=== PATIENT | male | born 1945 | race Native Hawaiian/Other Pacific Islander ===

== ENCOUNTER 2016-12-28 10:44 | Inpatient (IN) | payer OTHER ==
[2016-12-28] VITALS (10 sets, daily range): BP systolic 135–159; BP diastolic 45–76; PULSE 60–81; RESP 13–23; O2SAT 88–100
[~2016-12-28] VITALS: Ht 172.7 cm; Wt 101.1 kg
[~2016-12-28 10:44] MED LIST: AMLO10TA3 PO; ASPI-973 PO; CALC0.257 PO; DEXT4TAB PO; FERR-83 PO; FUR20 PO; GLIP10TA10 PO; INSU100V7 SUBQ; LOSA100T29 PO; METO100T3 PO; SIMV20TA4 PO; TIMO5DRO5 BOTH_EYES; ZYL100 PO
--- NOTE | 2016-12-28 11:28 | ED.REPORT ---
HPI-Dyspnea / Wheezing Date of Service Dec 28, 2016 ED Provider: Parrish Sanchez DO 71 year old male with a history of pneumonia, diabetes and HTN presents to the ER accompanied by his daughter due to three months of shortness of breath, worsening markedly over the past two days. Associated symptoms include productive cough, chills, and lower extremity swelling. Respiratory symptoms are worsened by laying flat. Daughter also reports confusion, stating that he has been "incoherent" for the past few days, but more talkative and coherent today. Patient denies fever, recent exposure to ill contacts, and history of CHF diagnosis. Nursing Notes Stated Complaint: SHORTNESS OF BREATH Chief Complaint: Respiratory Complaints Nursing Notes Reviewed: Yes Allergies: Coded Allergies: No Known Allergies (Unverified , 12/28/16) Scheduled Allopurinol (Allopurinol) 100 Mg Tablet 100 MG PO DAILY Amlodipine (Amlodipine) 10 Mg Tablet 10 MG PO DAILY Aspirin (Aspirin) 81 Mg Tablet 81 MG PO DAILY Calcitriol (Rocaltrol) 0.25 Mcg Capsule 0.25 MCG PO Mon, Wed, Sun Dextrose (Glucose) 4 Gm Tab.chew 4 GM PO DIRECTED Ferrous Sulfate (Ferrous Sulfate) 325 Mg Tablet 325 MG PO DAILY Furosemide (Furosemide) 20 Mg Tab 20 MG PO DAILY Glipizide (Glipizide) 10 Mg Tablet 20 MG PO BID Insulin Glargine (Lantus U100 Insulin Vial) 100 Unit/Ml Vial 10 UNIT SUBQ HS Losartan Potassium (Losartan Potassium) 100 Mg Tablet 50 MG PO DAILY Metoprolol Tartrate (Metoprolol Tartrate) 100 Mg Tablet 150 MG PO BID Miconazole Nitrate (Miconazole Nitrate) 10 Gm Powder 1 APPLIC TOPICAL DAILY Apply to toes Multivitamin (Multivitamins) 1 Each Capsule 1 EACH PO DAILY Ranitidine (Ranitidine) 300 Mg Tablet 300 MG PO HS Simvastatin (Simvastatin) 20 Mg Tablet 20 MG PO HS Timolol Maleate (Timolol Maleate) 5 Ml Drops 1 DROP BOTH_EYES BID General Time Seen by MD: 11:28 Chief Complaint Shortness of breath Hx Obtained From: Patient, Daughter Arrived By: Walk-in Sudden in Onset?: No Onset Occurred: More than a week ago... (3 months) Symptom Duration: Since onset Associated with: Reports: Cough, Leg swelling Context Related History: Reports: Pneumonia, Denies: Congestive heart failure Past Medical History Past Medical History Gout Reports: Diabetes mellitus, Hyperlipidemia, Hypertension Reports: Obesity Smoking History Former Smoker Social History Alcohol Use: Denies alcohol use Ambulatory Status Independent Review of Systems Constitutional: Reports: Chills, Denies: Fever Respiratory: Reports: Prod cough, clear, Shortness of breath Musculoskeletal: Reports: Extremity swelling (Lower, bilateral) Complete sys rev & neg: except as marked. GI: Denies: Abdominal pain, Nausea, Vomiting Neurologic: Reports: Confusion, Denies: Headache Physical Exam Initial Vital Signs Vital Signs (First) Date Time Temp Pulse Resp B/P Pulse Ox O2 Delivery O2 Flow Rate FiO2 12/28/16 10:52 36.3 70 18 143/66 88 Room Air 12/28/16 14:32 25 Initial VS: Reviewed Head / Eyes: Atraumatic, Normocephalic Abdomen / GI: Soft, Non-tender, No guarding, No rebound, No distention Extremities: Vascular intact, Neuro intact, No swelling, No tenderness Skin: Warm, Dry, No cyanosis Neurologic: Alert, Oriented, Nonfocal General/Constitutional: Awake, Alert, Well developed, Well nourished Neck: Atraumatic, Supple, No meningismus, Full range of motion, No swelling, Non-tender, No masses Neck Vascular: Positive: JVD moderate Respiratory / Chest: No rhonchi, No wheezing, No retractions, No stridor, No chest tenderness Rales in the lower lung tee, bilaterally. Cardiovascular: Heart rate NL, Regular rhythm, Heart sounds NL, Peripheral circulation NL Bilateral lower extremity edema. Interpretation & Diagnostics Lab Results Interpretation Result Diagram: 12/28/16 1130 12/28/16 1130 Test 12/28/16 11:30 12/28/16 11:40 12/28/16 12:55 12/28/16 13:15 White Blood Count 12.6th/mm3 (3.8-10.1) Red Blood Count 2.85mil/mm3 (4.40-5.80) Hemoglobin 7.9g/dL (13.8-17.2) Hematocrit 26.0% (41.0-50.0) Mean Corpuscular Volume 91.2fL (81-100) Mean Corpuscular Hemoglobin 27.7pg (27.0-35.0) Mean Corpuscular Hemoglobin Concent 30.4% (32.0-37.0) Red Cell Distribution Width 16.1% (12.3-15.4) Platelet Count 336bil/L (150-400) Neutrophils (%) (Auto) 83.3% (40-74) Lymphocytes (%) (Auto) 8.6% (14-46) Monocytes (%) (Auto) 5.8% (4-12) Eosinophils (%) (Auto) 1.9% (0-5) Basophils (%) (Auto) 0.2% (0-3) Sodium Level 138mEq/L (134-144) Potassium Level 5.8mEq/L (3.5-5.2) Chloride Level 103mEq/L (97-108) Carbon Dioxide Level 16mmol/L (18-29) Blood Urea Nitrogen 74mg/dL (8-27) Creatinine 3.91mg/dL (0.76-1.27) Estimat Glomerular Filtration Rate 16mL/min (>59) Glucose Level 107mg/dL (60-99) Calcium Level 8.3mg/dL (8.5-10.1) Total Bilirubin 0.3mg/dL (0.0-1.2) Aspartate Amino Transf (AST/SGOT) 31U/L (0-50) Alanine Aminotransferase (ALT/SGPT) 22U/L (0-44) Alkaline Phosphatase 102U/L (25-160) Troponin T 0.052ug/L (0.0-0.011) Pro-B-Type Natriuretic Peptide 09788qi/mL (0-376) Total Protein 7.5g/dL (6.4-8.4) Albumin 3.2g/dL (3.4-5.0) Procalcitonin 1.45ng/mL (0.00-0.08) Urine Color Yellow (YELLOW) Urine Appearance Hazy (CLEAR,HAZY) Urine pH 5.0 (5.0-8.0) Urine Specific [place] 1.030 (1.003-1.035) Urine Protein 100mg/dL (NEG,TRACE) Urine Glucose (UA) Negativemg/dL (NEGATIVE) Urine Ketones Negativemg/dL (NEGATIVE) Urine Occult Blood Small (NEGATIVE) Urine Nitrite Negative (NEGATIVE) Urine Bilirubin Negative (NEGATIVE) Urine Urobilinogen Normalmg/dL (NORMAL) Urine Leukocyte Esterase Moderate (NEGATIVE) Urine RBC 0-2/hpf (0-2) Urine WBC 11-50/hpf (0-5) Urine Epithelial Cells Occasional/hpf (NONE-MOD) Urine Crystals None seen (NONE SEEN) Urine Bacteria Few/hpf (NONE-FEW) Urine Hyaline Casts Occasional/lpf (NONE) Urine Granular Casts Occasional (NONE SEEN) Urine Waxy Casts None seen (NONE SEEN) Urine Red Blood Cell Casts None seen (NONE SEEN) Urine White Blood Cell Casts None seen (NONE SEEN) Urine Mucus Present (None Seen) Urine Trichomonas None seen (NONE SEEN) Urine Yeast None (NONE SEEN) Urinalysis Comment None Urine Culture Reflexed Indicated Lactic Acid Level 1.0mmol/L (0.4-2.0) Test 12/28/16 14:35 Lab Results Interpretation: Venous Blood Gas: pH: 7.310 pCO2: 41 pO2: 51.5 cHCO3: 20.1 cBase: -5.1 ECG Interpretation ECG Interpretation: Sinus rhythm, rate 66 RBBB and LAFB Time: 11:09 Interpreted by: ED physician X-Ray Chest Interpretation Chest Xray Interpretation: IMPRESSION: Increased pulmonary vascularity and interstitial opacities within the bases as well is cardiomegaly. Findings are suspicious for overall appearance of edema. Bibasilar opacities could be parts sales representative of focal edema versus developing airspace disease such as pneumonia. Dictated by: Giuliana Dill M.D. on 12/28/2016 at 12:17 Approved by: Giuliana Dill M.D. on 12/28/2016 at 12:18 View: Portable, 1 view Interpretation / Wet Read by: Interpret - Radiologist Re-Eval/Medical Decision Med Decision/Clinical Course Likely combination of infectious upper respiratory infection and acute kidney injury and possibly new onset heart failure. patient clinically looks fluid overloaded given his lower extremity edema JVD and pulmonary congestion on x-ray. There are no particular signs or symptoms of acute coronary syndrome. Patient is given IV Lasix and IV antibiotics and will be admitted. Source of Hx: Old records Re-Evaluation/Progress #1: Time of Eval: 11:55 Re-Evaluation/Progress Note: Completed physical examination. Re-Evaluation/Progress #2: Time of Eval: 14:16 Re-Evaluation/Progress Note: Nephrology requesting to place patient on bipap. Rechecked patient with manager store. Consultation #1: Referral / Consult Name: Luis Garcia DO Consulted With: Nephrology Call Returned at: 12:42 Marine Steamfitter: Will see patient Consultation #2: Referral / Consult Name: Donta Mitchell MD Consulted With: Hospitalist Call Returned at: 13:24 Marine Steamfitter: Agrees with eval, Agrees with plan, Accepts admit Counseled Regarding: Diagnosis, Lab results, Need for admission Discharge & Departure Impression: Primary Impression: Pneumonia Additional Impression: Acute kidney injury Disposition: ADMITTED TO HOSPITAL Discharge Condition All VS Reviewed: Yes Condition: Stable Scribe Attestation Portions of this note were transcribed by Sammy Shi. I, Dr. Sanchez, personally performed the history, physical exam and medical decision-making; I reviewed and confirmed the accuracy of the information in the transcribed note. Signed by: Pastora Pollock, 12/28/2016 and 14:17 Parrish Sanchez DO Dec 28, 2016 11:28 SAMMY SHI Dec 28, 2016 11:37
[2016-12-28 11:43] LABS: BASOPHILS % (AUTO) 0.2 % (0-3); EOSINOPHILS % (AUTO) 1.9 % (0-5); MONOCYTES % (AUTO) 5.8 % (4-12); Mean Corpuscular Hemoglobin 27.7 pg (27.0-35.0); Mean Corpuscular Volume 91.2 fL (81-100); NEUTROPHILS % (AUTO) 83.3 % (40-74); Platelet Count 336 bil/L (150-400)
--- NOTE | 2016-12-28 12:19 | DRSVH ---
PROCEDURE: X-RAY CHEST ONE VIEW, PORTABLE ([id number]) INDICATIONS: cough TECHNIQUE: One view of the chest was acquired. COMPARISON: [facility], CR, XR CHEST 2VW, 07/20/2016, 9:37. FINDINGS: Surgical changes and devices: None. Lungs and pleura: There is an abnormal appearance of increased pulmonary vascularity. Increased opaci ties are present within the bases. Mediastinum: Mediastinal contours appear normal. Heart size is enlarged. Bones and chest wall: No suspicious bony lesions. Overlying soft tissues appear unremarkable. IMPRESSION: Increased pulmonary vascularity and interstitial opacities within the bases as well is ca rdiomegaly. Findings are suspicious for overall appearance of edema. Bibasilar opacities could be rep resentative of focal edema versus developing airspace disease such as pneumonia. Dictated by: Giuliana Dill M.D. on 12/28/2016 at 12:17 Approved by: Giuliana Dill M.D. on 12/28/2016 at 12:18
[2016-12-28 12:21] LABS: TROPONIN T 0.052 ug/L (0.0-0.011)
[2016-12-28] MEDS ORDERED: Furosemide 10 mg/mL 10 mL Inj IVPUSH ONE ×2 (12:45→18:20)
[2016-12-28] MEDS ORDERED: cefTRIAXone Inj 2,000 MG in Dextrose 5% Minibag Plus 50 ML IV ONE (12:45)
[2016-12-28] MEDS ORDERED: Azithromycin Inj 500 MG in Dextrose 5% w/Vial Mate 250 ML IV ONE (12:45)
[2016-12-28 13:06] LABS: APPEARANCE,URINE HAZY (CLEAR,HAZY); COLOR,URINE YELLOW (YELLOW); OCCULT BLOOD,URINE SMALL (NEGATIVE); UROBILINOGEN,URINE NORMAL (NORMAL)
[2016-12-28] MEDS ORDERED: RANI300T4 PO (13:19)
[2016-12-28] MEDS ORDERED: MULT1CAP33 PO (13:19)
[2016-12-28] MEDS ORDERED: MICO10PO TOPICAL (13:20)
--- NOTE | 2016-12-28 13:33 | ABG ---
DateTimeAnalyzed 13:30:00 -_ pH ____7.310 - pCO2 ___41.2__ -mmHg pO2 ___51.5__ -mmHg HCO3- ___20.1__ -mmol/L ABE ___-5.1__ -mmol/L tHb ____7.8__ -g/dL O2Hb ___83.7__ -% COHb ____2.3__ -% MetHb ____1.0__ -% sO2 ___86.6__ -% FIO2 ___21.0__ -% Drawn By LAB - Date/Time Notified____ 13:33:00 -_ Oxygen Device 1 _ROOM AIR - Notified By JJ - Notified Whom DR OKELLEY - B 764 -mmHg tO2 ____9.2__ -Vol% Sebastian test N/A -
[2016-12-28] MEDS ORDERED: Alum-Mag Hydrox-Simeth 30 mL Suspension PO PRN (13:35)
[2016-12-28] MEDS ORDERED: Ondansetron 2 mg/mL 2 mL Inj IVPUSH PRN (13:35)
[2016-12-28] MEDS ORDERED: Polyethylene Glycol (PEG) 17 Gm Powder PO PRN (13:40)
--- NOTE | 2016-12-28 16:50 | NUR ---
1635 Pt arrived to room 2006. Pt. on RA upon arrival. Pt. RA sats 98%/ RR 18/ HR 69. Pt. placed on 1 lpm for comfort. Sats 98%. Pt. placed on 1/2 lpm NC. Sats 98%. Loose congested cough. BS decreased. Pt. refusing Bipap and Home CPAP. States "uncomfortable". Bipap is set up and cpap On S/B in room. Will set up CPAP for pt. to wear if wanted. Pt. refusing home cpap as well.
--- NOTE | 2016-12-28 17:04 | NUR ---
Admit Pt arrived to the unit at 1635 A&O x3 and on RA. The pt is currently refusing bipap and cpap - MD aware.
[2016-12-28] MEDS: cefTRIAXone Inj 1,000 MG in Dextrose 5% Minibag Plus 50 ML IV SCH (17:16)
--- NOTE | 2016-12-28 17:18 | PCM.HPMED ---
Subjective Date of Service Dec 28, 2016 Primary Provider: Admitting Physician: Tra Hill MD [facility] Attending Physician: Tra Hill MD Chief Complaint: Shortness of breath History of Present Illness: 71-year-old male with a history of diabetes, stage IV chronic kidney disease, and hypertension with admission for possible CHF exacerbation in July 2016 who presents to the ED today due to 2 months of progressive shortness of breath , orthopnea, PND, increased lower extremity edema, lower exercise tolerance, increasing cough, increasing sputum production. Patient also endorses chills without fever. Patient states that this started 2 months ago and is progressing to include shortness of breath with walking up stairs and around his house. He is unable to lay flat. Family reports confusion over the last couple of days and brought the patient to the hospital. Patient admits he has not been compliant with his home medications. He also did not follow up with nephrology after his last visit. In the ED the patient was placed on BiPAP due to shortness of breath. He is also started on azithromycin and ceftriaxone as well as doxycycline for presumed coverage of community acquired pneumonia. Venous blood gas was obtained in the ED showed a pH of 7.31, PCO2 41.2, PO2 51.5, bicarbonate of 20.1 , saturation of 86.6. White count 12.6, hemoglobin 7.9, hematocrit 26.0, platelet count of 336, neutrophils 83% Sodium 138, potassium 5.8, chloride 103, bicarbonate 16, BUN 74, creatinine 3.91 , glucose 107, troponin 0.052, BNP 16,962, profiles time 1.45 Lactic acid is 1, ammonia is 70; liver function normal Review of Systems: Complete review of systems performed; creatinine positives and negatives per history of present illness, all other systems reviewed and are negative Allergies Coded Allergies: No Known Allergies (Unverified , 12/28/16) Home Medications Allopurinol (Allopurinol) 100 Mg Tablet 100 MG PO DAILY Amlodipine (Amlodipine) 10 Mg Tablet 10 MG PO DAILY Aspirin (Aspirin) 81 Mg Tablet 81 MG PO DAILY Calcitriol (Rocaltrol) 0.25 Mcg Capsule 0.25 MCG PO Mon, Wed, Fri Dextrose (Glucose) 4 Gm Tab.chew 4 GM PO DIRECTED Ferrous Sulfate (Ferrous Sulfate) 325 Mg Tablet 325 MG PO DAILY Furosemide (Furosemide) 20 Mg Tab 20 MG PO DAILY Glipizide (Glipizide) 10 Mg Tablet 20 MG PO BID Insulin Glargine (Lantus U100 Insulin Vial) 100 Unit/Ml Vial 10 UNIT SUBQ HS Losartan Potassium (Losartan Potassium) 100 Mg Tablet 50 MG PO DAILY Metoprolol Tartrate (Metoprolol Tartrate) 100 Mg Tablet 150 MG PO BID Miconazole Nitrate (Miconazole Nitrate) 10 Gm Powder 1 APPLIC TOPICAL DAILY Apply to toes Multivitamin (Multivitamins) 1 Each Capsule 1 EACH PO DAILY Ranitidine (Ranitidine) 300 Mg Tablet 300 MG PO HS Simvastatin (Simvastatin) 20 Mg Tablet 20 MG PO HS Timolol Maleate (Timolol Maleate) 5 Ml Drops 1 DROP BOTH_EYES BID PMH Type II diabetes Hypertension Hyperlipidemia Obesity Chronic kidney disease, stage IV Surgical History No reported surgeries Family History Mother in her early 70s of heart disease/CHF Father in his 80s of "old age" Social History Occupation: retired Hx Alcohol Use: No Hx Substance Use: No Smoking Status: Former Smoker (30 pack years; quit 30 years ago) Living Arrangement: with Family (lives with his brother) Exam Vital Signs Vital Sign - Last Date Time Temp Pulse Resp B/P Pulse Ox O2 Delivery O2 Flow Rate FiO2 12/28/16 16:10 37.1 66 17 135/53 98 BiPAP 12/28/16 14:32 25 Exam Gen: No acute distress, age-appropriate HEENT: EOMI, PERRLA, JVD noted, membranes moist, visual tee decreased, hearing intact Lymph: No lymphadenopathy Cardio: Regular rate and rhythm, no murmurs Respiratory: Diffuse bilateral crackles and coarse breath sounds Abdomen: No edema noted; positive bowel sounds, nontender, nondistended Extremities: Asterixis noted, edema to mid thigh, cyanosis Neurological: Patient is conversing well and is intermittently confused Psych: Appropriate affect Lab and Diagnostics Result Diagram: 12/28/16 1130 12/28/16 1130 X-Rays, CTs and MRIs Chest X-ray IMPRESSION: Increased pulmonary vascularity and interstitial opacities within the bases as well is cardiomegaly. Findings are suspicious for overall appearance of edema. Bibasilar opacities could be medical detail representative of focal edema versus developing airspace disease such as pneumonia. Dictated by: Giuliana Dill M.D. on 12/28/2016 at 12:17 12-lead ECG Normal sinus rhythm with a rate of 66 and notable right bundle branch block with nonspecific inversion of T-wave likely related to the bundle-branch Assessment & Plan 71-year-old male presents second time in 6 months due to increasing shortness of breath with cough and sputum production without fever or chills. Acute on chronic kidney disease; present admission; ongoing -Patient has a history of chronic kidney disease, stage IV, with a baseline creatinine 2; presents with creatinine 3.91 -Patient is also severely fluid overloaded likely secondary to worsening kidney function -Nephrology consult obtained; appreciate their input -Patient also has elevated pro-calcitonin and troponin likely related to kidney failure -Patient was given Lasix in the ED, Lasix will continue overnight within another pressures of 60 mg IV Possible Chronic diastolic heart failure; present on admission; ongoing -Last echo in July revealed a severely dilated left atrium with mild MR and a normal ejection fraction -Chest x-ray is edematous, ammonia is elevated likely due to congestion, and BNP (for what it is worth) is 17,000 -Lasix started as above -Echo tomorrow -EKG reviewed and patient on telemetry -Patient states that he has not been compliant with his diuretics or other medications including metoprolol and losartan; currently not taking his amlodipine Possible community-acquired pneumonia; present admission; ongoing -Patient presents with questionable lower lobe consolidations and leukocytosis; pro-calcitonin is elevated, however this is in kidney disease -Patient started on ceftriaxone and doxycycline in the emergency department and we will continue these through at least tomorrow -Recheck labs in the a.m. including procalcitonin -Blood and urine cultures obtained, will order sputum culture as well Type II diabetes, insulin using; present admission; ongoing -Patient has a history of uncontrolled type II diabetes -Patient states he has not been compliant with his blood sugar is 107 on admission -We will start patient's home Lantus tonight, we will see how he does tomorrow when we add correctional -A1c pending Hyperammonemia with encephalopathy; present admission; ongoing -Patient presents mildly confused but reports at home of the patient being confused -Ammonia level is 70; likely due to chronic hepatic congestion -Will start lactulose Chronic normocytic anemia, likely secondary to CKD; present admission; ongoing -We will continue to monitor and give blood as needed -Current hemoglobin is 7.9 -Discussed with nephrology utility of giving Aranesp Anion gap metabolic acidosis; present on admission; ongoing -Patient presents with anion gap of 19 best explained by uremia -We will follow labs as we diurese Elevated troponin; present admission; ongoing -Likely secondary to chronic kidney disease -No reported chest pain or EKG changes suggestive of ischemia -We will trend overnight Disposition: Patient has been admitted under inpatient status with length of stay greater than 2 midnights due to severity of presenting symptoms, duration treatment, and risk of adverse events Pain Evaluation: Adequate Pain Control GI Prophylaxis: Not indicated VTE Prophylaxis: Sub-Q Heparin (Unfractionated) Resuscitation Status: CPR: Attempt Resuscitation Time spent 40 min Attending Statement Patient seen and examined with house staff, agree with all attached documentation. Adama Ordaz DO Dec 28, 2016 17:18 Sebastian Lange MD Dec 29, 2016 07:48
[2016-12-28] MEDS: Lactulose 20 Gm/30 mL 30 mL Syrup PO SCH (19:37)
--- NOTE | 2016-12-28 19:48 | DRSVH ---
PROCEDURE: US RENAL SONOGRAM INDICATIONS: azael TECHNIQUE: Real-time scanning was performed of the kidneys and bladder, with image documentation. COMPARISON: None. FINDINGS: Kidneys: Kidneys are normal in size. Right kidney measures 13.3 cm long; left kidney measures 13.9 cm long. Right renal cortical thickness is 0.9 cm; left renal cortical thickness is 1.1 cm. Renal c ortical echotexture is difficult to see because good pictures of the right kidney and liver at the sa me depth could not be obtained. Patient is unable to take deep breaths No hydronephrosis or nephrolit hiasis. IMPRESSION: No hydronephrosis. Mild right cortical thinning. Dictated by: Garrick Aguilera M.D. on 12/28/2016 at 19:45 Approved by: Garrick Aguilera M.D. on 12/28/2016 at 19:47
[2016-12-28] MEDS: Heparin 5,000 Unit/mL Inj SUBQ SCH (22:26)
[2016-12-28] MEDS: Nystatin 100,000 Unit/Gm 15 Gm Powder TOPICAL SCH (23:15)
[2016-12-29] VITALS (8 sets, daily range): BP systolic 143–157; BP diastolic 64–75; PULSE 74–92; RESP 20–22; O2SAT 93–97
--- NOTE | 2016-12-29 00:33 | NUR ---
RASH/HYGIENE/MENTATION/COUGH Pt was A&Ox3, but very tired and hard to hold attention. Pt was very weak and needed 2PA for turning and cleaning. Pt had a yeasty smelling rash to the groin folds and scrotal area. Groin area extremely tender and macerated. Nystatin ordered. Pt also had skin tears to lower extremities. Pt denied any pain, but showed signs of pain with facial grimaces when turned or when groin or lower extremities touched. Pt had poor hygiene, with dried feces stuck to groin and buttocks area. Pt was accepting of a bed bath, but needed full assistance with cleaning. Pt had a very aggressive non-productive cough and requested tessalon pearls for relief.
--- NOTE | 2016-12-29 01:51 | CONS ---
[address] [address] CONSULTATION REPORT PATIENT: ESTIVEN HERR : 1945 MR#: [id number] ADMIT: 12/28/2016 JOB ID: [id number] DATE OF SERVICE: RENAL CONSULTATION: HISTORY OF PRESENT ILLNESS: The patient is a very pleasant, but unfortunate, 71-year-old white male who was admitted to [facility] for cough, wheezing, and some shortness of breath. At time of admission, he had a creatinine of 3.9, which is up from a previous creatinine of 2.6 several months ago. Renal consultation is being sought for further evaluation of his acute on chronic kidney injury. The patient states that he has had approximately a two month history of a nonproductive cough. He denies any fever, chills, but does have some nausea without vomiting and diarrhea. He does also relate a history of dyspnea on exertion, orthopnea, and some lower extremity edema. He does not state any complaint of chest pain, difficulty urination or pain with urination. He was hospitalized several months ago and in early July of 2016 his creatinine was 2.7 during a hospitalization and it improved over several days to 2.55. He denies a history of any prior renal problems, but at time of my evaluation he would was rather somnolent and appeared to have difficulty in answering any more than simple questions. He has approximately a five year history of insulin-requiring diabetes mellitus. His diabetes has been complicated by peripheral neuropathy and retinopathy. His blood sugars apparently average in the low 200 range and he does not follow any type of diabetic diet. He does get his medical care at the [facility] There is also a history of obstructive sleep apnea, and although he has been prescribed CPAP he does not use it. There is also a history of hypertension. Although he does not relate a history of chronic kidney disease, he also denies a history of any prior proteinuria, hematuria, prostate problems, hepatitis, recurrent urinary tract infections, renal lithiasis, or frequent use of nonsteroidal anti-inflammatories. He does not take an BABAK inhibitor, but is on losartan. PAST MEDICAL HISTORY: Is significant for: 1. Stage III chronic kidney disease most likely secondary to metabolic syndrome with diabetes and hypertensive etiology. There is also a history as detailed above of insulin-requiring diabetes mellitus with multiple complications. 2. Hypertension with hypertensive heart disease and hypertensive nephrosclerosis. 3. Obstructive sleep apnea. 4. Gout. 5. Hyperlipidemia. Past medical history otherwise is negative for prior stroke, seizure, asthma, tuberculosis, myocardial infarction, congestive heart failure, malignancy. Echocardiogram done in July showed a relatively normal ejection fraction, however, there was evidence of impaired relaxation consistent with diastolic dysfunction. PAST SURGICAL HISTORY: Is unremarkable. ALLERGIES: He is not allergic to any food or any medication. SOCIAL HISTORY: He denies the current use of alcohol, tobacco, or illicit drugs. He lives with his brother and his brother's family, and is quite sedentary, and over the last several months has been progressively weaker with decreased oral intake. FAMILY HISTORY: Unobtainable. REVIEW OF SYSTEMS: As detailed above, otherwise is unknown or unobtainable. PHYSICAL EXAMINATION: Revealed an obese 71-year-old Asiatic gentleman who was quite somnolent at time of my evaluation. Vital signs at time of my evaluation showed a temperature of 36.1, pulse 70, blood pressure is 143/66, however, his pulse ox on room air was 88%. HEENT examination is remarkable for pale sclerae. Neck is supple without adenopathy or thyromegaly. There was moderate to severe jugular venous distention at 60 degrees. Lungs showed a few bibasilar rales, however, in light of his large body habitus the remaining pulmonary exam was clear. Heart was irregularly irregular. Abdomen: Mild to moderately distended with diminished bowel sounds and tympany to percussion. The abdomen was nontense. There was some hepatomegaly noted with evidence of hepatojugular reflux and the liver was pulsatile. Extremities showed some mild generalized lower extremity edema with possible early lymphedema. There was no clubbing or cyanosis noted, however, half and half nails were noted. Skin turgor is good. There is no evidence of any rashes. LABORATORY EXAMINATION: On admission, his white count was 12.6, hemoglobin of 7.9, hematocrit 26.0. Red cell indices, platelet count and differential were remarkable only for 83 neutrophils. His sodium was 138, potassium 5.8, chloride of 103, bicarbonate was 16. BUN and creatinine were 74 and 3.9. Ammonia was 70. Urinalysis showed a specific gravity 1.030, pH is 5. Tests for protein and occult blood were positive. There were 0-2 RBCs per high-power field, 6-50 WBCs per high-power field, and few bacteria were seen. There were a few scattered granular casts noted. I reviewed his current chest x-ray, comparing it to his previous one in July 2016. His chest x-ray shows some cardiomegaly which is old. He does appear to have some increased pulmonary vasculature with multiple air bronchograms more consistent with fluid overload. IMPRESSION: 1. Acute on chronic kidney injury secondary to acute right-sided chronic cor pulmonale. 2. Diabetic nephropathy with chronic kidney disease stage III/IV. 3. Hypertension with hypertensive heart disease and hypertensive nephrosclerosis. 4. Metabolic syndrome. RECOMMENDATION: I would like to cautiously diurese him. My main concern is his somnolence and some myoclonic jerks that have been noticed during my evaluation. We need to closely follow his respiratory parameters, intake and output. Once again, I would like to thank you for allowing me to participate in the care of this pleasant, interesting patient. I will be following him closely with you.
[2016-12-29 03:45] LABS: BASOPHILS % (AUTO) 0.2 % (0-3); EOSINOPHILS % (AUTO) 4.5 % (0-5); MONOCYTES % (AUTO) 7.4 % (4-12); Mean Corpuscular Volume 92.2 fL (81-100); NEUTROPHILS % (AUTO) 74.5 % (40-74); Platelet Count 312 bil/L (150-400)
[2016-12-29 04:24] LABS: TROPONIN T 0.06 ug/L (0.0-0.011)
[2016-12-29 05:43] LABS: Magnesium 2.4 mg/dL (1.6-2.6); Phosphorus 6.3 mg/dL (2.5-4.9); Unsaturated Iron Binding 160.7 ug/dL
[2016-12-29] MEDS: Lactulose 20 Gm/30 mL 30 mL Syrup PO SCH ×3 (07:57→19:16)
[2016-12-29] MEDS: Heparin 5,000 Unit/mL Inj SUBQ SCH ×2 (07:58→19:58)
[2016-12-29] MEDS: Nystatin 100,000 Unit/Gm 15 Gm Powder TOPICAL SCH ×2 (08:00→19:59)
[2016-12-29] MEDS ORDERED: Azithromycin Inj 500 MG in Dextrose 5% w/Vial Mate 250 ML IV SCH ×4 (08:30)
--- NOTE | 2016-12-29 11:16 | PCM.PNNEPH ---
Subjective Date of Service Dec 29, 2016 Subjective The patient has had some increase in urine output and improvement in his renal function however he does remain somnolent and with evidence of asterixis. He denies any chest pain, shortness of breath, cough, wheezing, nausea or vomiting. His blood pressure has ranged between 130 and 150 systolic. The last 24 hours she has had about 100 mL stent and 1016 and urine output. For the first Stadol she is already had 2000, also. This morning his sodium is 138, potassium 5.1, chloride of 108, bicarbonate 18, BUN and creatinine were 71 and 3.6 respectively. His hemoglobin is 7.6, transferrin saturation is 11% and his phosphorus is elevated at 6.3. Exam Vital Signs Vital Sign - Last Date Time Temp Pulse Resp B/P Pulse Ox O2 Delivery O2 Flow Rate FiO2 12/29/16 08:01 36.5 83 20 144/64 93 Nasal Cannula 3.00 12/28/16 14:32 25 Intake and Output 12/28/16 12/28/16 12/29/16 Cumulative From/Thru 15:00 23:00 07:00 12/28/16 10:52 - 12/29/16 06:20 Intake Total 100 ml 400 ml 500 ml Output Total 1060 ml 2000 ml 3060 ml Balance -960 ml -1600 ml -2560 ml Intake Oral 100 ml 400 ml 500 ml Output Urine Total 1060 ml 2000 ml 3060 ml Exam Patient is arousable but remained somnolent and able to answer simple questions. His sclera are pale. Neck is supple without adenopathy or thyromegaly however he still has trigger venous distention at about 90 but this does appear her blood loss. Lungs showed some bibasilar rales but otherwise were clear. Heart was regular with soft systolic murmur. Abdomen remains distended but non-tense. There is some mild tympany to percussion but no tenderness rebound guarding masses or hepatosplenomegaly. Extremities not showing any evidence of any clubbing cyanosis and there is minimal edema. 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 Lab and Diagnostics Result Diagram: 12/29/16 03212/29/16324 X-Rays, CTs and MRIs Chest X-ray IMPRESSION: Increased pulmonary vascularity and interstitial opacities within the bases as well is cardiomegaly. Findings are suspicious for overall appearance of edema. Bibasilar opacities could be leather goods sales representative of focal edema versus developing airspace disease such as pneumonia. Dictated by: Giuliana Dill M.D. on 12/28/2016 at 12:17 12-lead ECG Normal sinus rhythm with a rate of 66 and notable right bundle branch block with nonspecific inversion of T-wave likely related to the bundle-branch Plan Impression Impression #1 acute decompensated congestive heart failure/cor pulmonale #2 acute on chronic kidney injury secondary to decompensated heart failure #3 diabetic nephropathy #4 hypertension with hypertensive heart disease hypertensive nephrosclerosis #5 anemia secondary to chronic kidney disease #6 type IV renal tubular acidosis. Recommendations #1 I would like to continue cautious IV hydration on him. I would also like to begin Aranesp 60 mg today and IV iron infusions. Going forward we need to closely follow his intake, I will put, and renal function for the next several days. Plan The patient will continue hyperbaric treatments. Will return () for treatment #() Luis Garcia DO Dec 29, 2016 11:16
[2016-12-29] MEDS ORDERED: Iron Sucrose Inj 200 MG in 0.9% Sodium Chloride 100 ML IV ONE (11:20)
[2016-12-29] MEDS ORDERED: Darbepoetin Alfa 60 mCg/0.3 mL Inj SUBQ ONE (11:20)
[2016-12-29] MEDS: cefTRIAXone Inj 1,000 MG in Dextrose 5% Minibag Plus 50 ML IV SCH (13:46)
[2016-12-29] MEDS: Benzocaine-Menthol Lozenge 2/Pkg PO PRN ×3 (13:58→20:04)
--- NOTE | 2016-12-29 14:58 | NUR ---
Social Work: Initial Assessment Data & Assessment: See Initial Assessment. EMR Reviewed. Patient is a 71 year old male that admitted on 12/28/16 due to CONRADO AND Pnuemonia per H&P. Foreign Law Consultant met with patient at bedside and attempted to complete initial assessment, but the patient was unable to stay awake long enough to answer questions. Foreign Law Consultant spoke with patient's brother, Dano Carreon [phone], to complete initial assessment, Social Work role explained and discharge planning discussed. Advanced directives were discussed and patient's brother declined information. Patient brother confirmed that his PCP is at [facility]. Patient's insurance is [employer]. Patient does not have any LTC benefits. Patient's brother reports that he uses a walker and WC at baseline. Patient reports no HH history, but he has been to SNF in [place]. Patient lives at home with his brother in an apartment with six steps to enter. SW provided phone number and plan on white board in room. Patient discharge disposition is pending SW will continue to follow. Plan: SW will continue to follow patient for discharge planing needs. Patient's family is supportive. Josse Atwood LMSW, JEMRAINE Addendum: 12/29/16 at 1510 by JOSSE ATWOOD Amended: Links added.
--- NOTE | 2016-12-29 15:20 | NUR ---
Cough Pt continues to c/o and demonstrate a harsh/barking productive cough. Tessalon pearls given with no relief. Pt requested a cough drop to help sooth his throat. Cepacol throat lozenge 15mg PO was administered with minor relief.
[2016-12-29] MEDS ORDERED: Furosemide 10 mg/mL 10 mL Inj IVPUSH ONE (15:45)
[2016-12-29] MEDS ORDERED: Glucose 40% Oral Gel 15 Gm Tube PO PRN (15:50)
--- NOTE | 2016-12-29 15:50 | PCM.PNMED ---
Subjective Date of Service Dec 29, 2016 Subjective Overnight patient did very well. Looking much better today. Cough is still bad but is low but better controlled. No sputum production. Patient able to ambulate. Confusion seems to have worn off Exam Vital Signs Vital Sign - Last Date Time Temp Pulse Resp B/P Pulse Ox O2 Delivery O2 Flow Rate FiO2 12/29/16 12:38 37.1 89 20 157/72 96 Nasal Cannula 3.00 12/28/16 14:32 25 Intake and Output 12/28/16 12/28/16 12/29/16 Cumulative From/Thru 15:00 23:00 07:00 12/28/16 10:52 - 12/29/16 06:20 Intake Total 100 ml 400 ml 500 ml Output Total 1060 ml 2000 ml 3060 ml Balance -960 ml -1600 ml -2560 ml Intake Oral 100 ml 400 ml 500 ml Output Urine Total 1060 ml 2000 ml 3060 ml Exam Gen: No acute distress, age-appropriate HEENT: VD noted, membranes moist, visual tee decreased, hearing intact Lymph: No lymphadenopathy Cardio: Regular rate and rhythm, no murmurs Respiratory: Diffuse bilateral crackles but improved since yesterday Abdomen: No edema noted; +bs Extremities: Asterixis noted, edema to mid thigh, cyanosis Neurological: Patient is conversing well and is intermittently confused Psych: Appropriate affect IVs and Medications Medications Reviewed: Medications were reviewed in detail Lab and Diagnostics Result Diagram: 12/29/16 0325 12/29/16 0325 X-Rays, CTs and MRIs Chest X-ray IMPRESSION: Increased pulmonary vascularity and interstitial opacities within the bases as well is cardiomegaly. Findings are suspicious for overall appearance of edema. Bibasilar opacities could be sales representative girls' apparel of focal edema versus developing airspace disease such as pneumonia. Dictated by: Giuliana Dill M.D. on 12/28/2016 at 12:17 12-lead ECG Normal sinus rhythm with a rate of 66 and notable right bundle branch block with nonspecific inversion of T-wave likely related to the bundle-branch Assessment & Plan 71-year-old male presents second time in 6 months due to increasing shortness of breath with cough and sputum production without fever or chills. Acute on chronic kidney disease; present admission; improving -Patient has a history of chronic kidney disease, stage IV, with a baseline creatinine 2; presents with creatinine 3.91 -Looks more stable and active after diuresis -Nephrology consult obtained; appreciate their input -Patient also has elevated pro-calcitonin and troponin likely related to kidney failure -Continue with Lasix 60 mg IV daily Possible Chronic diastolic heart failure; present on admission; ongoing -Last echo in July revealed a severely dilated left atrium with mild MR and a normal ejection fraction; patient states has not been compliant with his medications -Chest x-ray is edematous, ammonia is elevated likely due to congestion, and BNP (for what it is worth) is 17,000 -Lasix started as above -Echo still pending -EKG reviewed and patient on telemetry Possible community-acquired pneumonia; present admission; ongoing -Possible lower lobe consolidations and leukocytosis; pro-calcitonin is elevated , however this is in kidney disease -Patient started on ceftriaxone and doxycycline in the emergency department and we will continue these through at least tomorrow -Patient denies fever, chills, nausea, vomiting, or other signs of infection -Recheck labs in the a.m. including procalcitonin -Cultures negative after 24 hours -We will discontinue ceftriaxone tomorrow cultures are negative Type II diabetes, insulin using; present admission; ongoing -Patient has a history of uncontrolled type II diabetes -Patient states he has not been compliant but his blood sugar is 107 on admission -Stop Lantus; low correctional -A1c 6.7 Hyperammonemia with encephalopathy; present admission; ongoing -Patient presents mildly confused but reports at home of the patient being confused -Ammonia level is 70; likely due to chronic hepatic congestion -Will start lactulose -Check level in a.m. Chronic normocytic anemia, likely secondary to CKD; present admission; ongoing -We will continue to monitor and give blood as needed -Current hemoglobin is 7.9 -Aranesp Anion gap metabolic acidosis; present on admission; ongoing -Patient presents with anion gap of 19 best explained by uremia -We will follow labs as we diurese Elevated troponin; present admission; stable -Likely secondary to chronic kidney disease -No reported chest pain or EKG changes suggestive of ischemia Disposition: Patient still undergoing diuresis with close nephrology care. Patient's on a constant carb diet GI Prophylaxis: Not indicated VTE Prophylaxis: Sub-Q Heparin (Unfractionated) Resuscitation Status: CPR: Attempt Resuscitation Time spent 30 min Attending Statement Patient was seen and examined with housestaff. Agree with all attached documentation. Adama Ordaz DO Dec 29, 2016 15:50 Sebastian Lange MD Dec 30, 2016 14:13
[2016-12-29] MEDS: Insulin LISPRO 300 Unit/3 mL Inj SUBQ SCH ×2 (17:30→20:01)
--- NOTE | 2016-12-29 17:55 | DRSVH ---
[facility] [address] [place] [address] Echocardiogram Report Name: ESTIVEN HERR Study Date: 12/29/2016 Height: 68 in Hospital Exam Location: [facility] Weight: 241 lb Gender: Male BSA: 2.2 m2 : 1945 Age: 71 yrs BP: 143/64 mmHg Reason For Study: Pulmonary edema Ordering Physician: Performed By: [facility] Interpretation Summary Left ventricular systolic function is normal without focal wall motion abnormalities with the ejection fraction visually estimated to be 60-65%. Left ventricular wall thickness is mildly increased and diastolic parameters suggest a pseudonormalization pattern with a E/E' ratio that is mildly increased, suggesting possible increased filling pressures, but likely slightly lower compared to the previous study. The right ventricle is not well visualized but grossly appears to be mildly dilated with right ventricular systolic function that is mildly reduced but likely unchanged compared to the previous study. There is moderate pulmonary hypertension with the right ventricular systolic pressure estimated at 49 mmHg assuming a right atrial pressure of 15 mm Hg, and is unchanged compared to the previous study. The left atrium is severely dilated but is unchanged compared to the previous study. There is mild to moderate mitral regurgitation that is unchanged and mild tricuspid regurgitation that appears is less prominent compared to the previous study. There is no other significant valvular heart disease. Procedure: A two-dimensional transthoracic echocardiogram with color flow and Doppler was performed. The study quality was technically adequate. Comparison is made with the echocardiogram of 07/19/16. Left Ventricle: The left ventricle is normal in size. Left ventricular wall thickness is mildly increased. Left ventricular systolic function is normal without focal wall motion abnormalities. The ejection fraction is estimated to be 60-65%. Assessment of diastolic parameters suggests a pseudonormalization pattern, consistent with elevated filling pressures. The E/E' ratio is mildly increased, suggesting possible increased filling pressures. This is likely slightly lower compared to the previous study. Right Ventricle: The right ventricle is not well visualized. The right ventricle is mildly dilated. Right ventricular systolic function is mildly reduced. This is likely unchanged compared to the previous study. Atria: The left atrium is severely dilated. The right atrium is normal in size. This is unchanged compared to the previous study. The interatrial septum is intact with no evidence for an atrial septal defect. Mitral Valve: There is mild to moderate mitral annular calcification. The mitral valve leaflets are mildly calcified. There is mild to moderate mitral regurgitation. This is unchanged compared to the previous study. Aortic Valve: The aortic valve is normal in structure and function. The aortic valve is trileaflet. The aortic valve is slightly calcified. The aortic valve opens well. No aortic regurgitation is present. Tricuspid Valve: The tricuspid valve is normal in structure and function. There is mild tricuspid regurgitation. This is less prominent compared to the previous study. There is moderate pulmonary hypertension. The right ventricular systolic pressure is estimated at 49 mmHg assuming a right atrial pressure of 15 mm Hg. This is unchanged compared to the previous study. Pulmonic Valve: The pulmonic valve is normal in structure and function. There is a trace or physiologic amount of pulmonic regurgitation. There is no other significant valvular heart disease. Great Vessels: The aortic root is normal size. The dimensions of the ascending aorta are normal. The aortic arch could not be visualized. The pulmonary artery is normal size. The IVC is dilated (diameter is greater than 2.1 cm) and it collapses less than 50% with a sniff. This suggests a high right atrial pressure of 15 mm Hg. Pericardium/ Pleura There is no pericardial effusion. There is no pleural effusion. MMode/2D Measurements & Calculations LVIDd: 5.5 cm LA dimension: 4.8 cm RA long axis Ao root diam LVIDs: 3.1 cm FS: 43.2 % LA A2 area: 33.8 cm RA area asc Aorta IVSd: 1.3 cm LA A4 area: 32.4 cm Diam: 3.0 cm LVPWd: 0.81 cm LA length (vol): 7.2 cm : 19.0 cm LA vol: 129.4 ml RA vol: 55.7 ml LA vol index RA : 25.2 mm2 IVC diam: 2.5 cm LV zepeda. diameter/BSA LV sys. diameter/BSA RVD1 (basal) (cm/m^2): 2.5 (cm/m^2): 1.4 Doppler Measurements & Calculations Ao V2 max MV E max gonzaol MV E/A: 1.6 TR max gonzalo : 165.5 cm/sec : 142.3 cm/sec Med Peak E' Gonzalo : 291.6 cm/sec Ao max PG MV A max gonzalo TR max PG : 11.0 mmHg : 87.8 cm/sec E/E' med: 18.0 : 34.0 mmHg Ao mean PG MV P1/2t: 34.7 msec Lat Peak E' Gonzalo PA V2 max : 6.2 mmHg : 127.7 cm/sec E/E' lat: 13.4 PA mean PG E/e' average: 15.7 MV A dur: 0.15 sec PA Accel Time : 0.08 sec MV V2 mean MV P1/2t max gonzalo Ao V2 mean PA V2 mean : 82.8 cm/sec : 118.4 cm/sec : 85.5 cm/sec MV mean PG Ao V2 VTI: 34.4 cm MVA(P1/2t): 6.3 cm2 MV V2 VTI MV dec time : 0.12 sec Reading Physician:05:54 PM
--- NOTE | 2016-12-29 21:25 | NUR ---
COUGH/MENTATION/LOWER EXTREMITIES Pt was more alert compared to previous night. Pt stated he feels a lot better after his iron infusion and was able to sit on the edge of the bed. The previous night he was barely able to turn side to side with 2PA. Pt still struggles with a harsh/barking cough. Pt received Cepacol throat lozenges for relief. Pt's right LE dressing was changed due to drainage. Pt's socks were soaked on assessment, BLE weeping noted. Pt was pleasant and cooperative with care. Pt's BS were within parameters, no insulin given. Pt stated he isn't compliant with his BS checks at home. Pt also requested his toe nails to be clipped after his bed bath. Pt stated that he didn't know he had to have his nails clipped by a professional. He used to get them done at the nail salon until he mentioned it at his last check up.
[2016-12-30] VITALS (8 sets, daily range): BP systolic 138–158; BP diastolic 56–70; PULSE 72–95; RESP 16–20; O2SAT 96–100
[2016-12-30] MEDS: Benzocaine-Menthol Lozenge 2/Pkg PO PRN (02:06)
[2016-12-30 03:09] LABS: BASOPHILS % (AUTO) 0.2 % (0-3); EOSINOPHILS % (AUTO) 2.8 % (0-5); MONOCYTES % (AUTO) 7.2 % (4-12); Mean Corpuscular Hemoglobin 27.5 pg (27.0-35.0); NEUTROPHILS % (AUTO) 78.2 % (40-74); Platelet Count 326 bil/L (150-400)
--- NOTE | 2016-12-30 06:16 | NUR ---
WOUND Pt's RLE continues to weep through dressing. Pt was siting at the edge of the bed for quite a bit during the night to help with his breathing, and a noticeable amount of fluid from his leg pooled on the floor. Pt's dressing was changed x3, pt's feet had increased swelling, +2 pitting edema. Pt was instructed to keep his legs elevated.
[2016-12-30] MEDS: Nystatin 100,000 Unit/Gm 15 Gm Powder TOPICAL SCH ×2 (08:53→20:21)
[2016-12-30] MEDS: Heparin 5,000 Unit/mL Inj SUBQ SCH ×2 (08:53→20:21)
[2016-12-30] MEDS: Lactulose 20 Gm/30 mL 30 mL Syrup PO SCH ×2 (08:53→14:30)
[2016-12-30] MEDS: Insulin LISPRO 300 Unit/3 mL Inj SUBQ SCH ×4 (08:53→22:24)
--- NOTE | 2016-12-30 10:23 | PCM.PNNEPH ---
Subjective Date of Service Dec 30, 2016 Subjective Patient's condition continues to improve. He is considerably more alert and interactive today compared to previous examinations. He denies any nausea, vomiting, or diarrhea. He is not somnolent and does not have any evidence of asterixis. His blood pressures have ranged between 140 and 160 range. Last 24 hours he has had 1258 in and 2650 out with an initial thousand out today. Morning labs shows a hemoglobin of 7.9, sodium of 140, potassium 5.1, chloride 103, bicarbonate 20, BUN and creatinine are 60 and 3.23 respectively. Exam Vital Signs Vital Sign - Last Date Time Temp Pulse Resp B/P Pulse Ox O2 Delivery O2 Flow Rate FiO2 12/30/16 10:04 88 12/30/16 08:39 Supplement Oxygen 12/30/16 08:39 36.7 16 153/63 100 3.00 12/28/16 14:32 25 Intake and Output 12/29/16 12/29/16 12/30/16 Cumulative From/Thru 15:00 23:00 07:00 12/28/16 10:52 - 12/30/16 06:09 Intake Total 858 ml 590 ml 1948 ml Output Total 650 ml 1000 ml 4710 ml Balance 208 ml -410 ml -2762 ml Intake Oral 450 ml 480 ml 1430 ml IV Total 408 ml 110 ml 518 ml Output Urine Total 650 ml 800 ml 4510 ml Stool Total 200 ml 200 ml # Bowel Movements 1 1 2 Exam HEENT examination is remarkable once again for pale sclera however I do not appreciate a uremic fetor. Neck is supple without adenopathy, thyromegaly, or jugular venous distention. Lungs show some bibasilar rales and scattered rhonchi once again. Heart is regular rhythm with soft systolic murmur. Abdomen is distended but nontender snores or any evidence of a significant fluid wave. There is no tenderness rebound or guarding noted. Extremities continue to demonstrate edema which once again today appears to be a bit less than yesterday. Lab and Diagnostics Result Diagram: 12/30/16 0250 12/30/16 0250 X-Rays, CTs and MRIs Chest X-ray IMPRESSION: Increased pulmonary vascularity and interstitial opacities within the bases as well is cardiomegaly. Findings are suspicious for overall appearance of edema. Bibasilar opacities could be retail field representative of focal edema versus developing airspace disease such as pneumonia. Dictated by: Giuliana Dill M.D. on 12/28/2016 at 12:17 12-lead ECG Normal sinus rhythm with a rate of 66 and notable right bundle branch block with nonspecific inversion of T-wave likely related to the bundle-branch Plan Impression Impression #1 acute on chronic kidney injury secondary to decompensated congestive heart failure/cor pulmonale number to baseline chronic kidney disease stage 3/4 #3 diabetic nephropathy #4 hypertension with hypertensive heart disease and hypertensive nephrosclerosis. Recommendations #1 I would like to give him an additional single dose of 60 mg of Lasix and continue to closely follow his intake, output, and blood pressure along with his renal indices. #2 would like to start him on labetalol 100 mg twice a day. #3 at one point he will need some type of RAAS blockade however I want to wait until his renal function stabilizes before undertaking this. Luis Garcia DO Dec 30, 2016 10:23
[2016-12-30] MEDS ORDERED: Furosemide 10 mg/mL 10 mL Inj IVPUSH ONE (10:25)
--- NOTE | 2016-12-30 11:57 | PCM.PNMED ---
Subjective Date of Service Dec 30, 2016 Subjective His cough is improving. His low short of breath. Legs are still fairly swollen. He is weak but slowly getting stronger. No chest pain nausea and anorexia or abdominal pain. No difficulty with defecation or urination. Exam Vital Signs Vital Sign - Last Date Time Temp Pulse Resp B/P Pulse Ox O2 Delivery O2 Flow Rate FiO2 12/30/16 10:04 88 12/30/16 08:39 Supplement Oxygen 12/30/16 08:39 36.7 16 153/63 100 3.00 12/28/16 14:32 25 Intake and Output 12/29/16 12/29/16 12/30/16 Cumulative From/Thru 15:00 23:00 07:00 12/28/16 10:52 - 12/30/16 06:09 Intake Total 858 ml 590 ml 1948 ml Output Total 650 ml 1000 ml 4710 ml Balance 208 ml -410 ml -2762 ml Intake Oral 450 ml 480 ml 1430 ml IV Total 408 ml 110 ml 518 ml Output Urine Total 650 ml 800 ml 4510 ml Stool Total 200 ml 200 ml # Bowel Movements 1 1 2 Exam Alert and oriented 3, no distress. Fluent speech Anicteric sclerae. Neck is supple Lungs are clear with normal effort Heart is regular without murmur gallop or rub. Abdomen is soft nontender Extremities a 2+ to 3+ edema in the feet and legs. Skin venous stasis changes over pretibial regions bilaterally. IVs and Medications Medications Reviewed: Medications were reviewed in detail Lab and Diagnostics Result Diagram: 12/30/16 0250 12/30/16 0250 X-Rays, CTs and MRIs Chest X-ray IMPRESSION: Increased pulmonary vascularity and interstitial opacities within the bases as well is cardiomegaly. Findings are suspicious for overall appearance of edema. Bibasilar opacities could be construction representative of focal edema versus developing airspace disease such as pneumonia. Dictated by: Giuliana Dill M.D. on 12/28/2016 at 12:17 12-lead ECG Normal sinus rhythm with a rate of 66 and notable right bundle branch block with nonspecific inversion of T-wave likely related to the bundle-branch Assessment & Plan 71-year-old male presents second time in 6 months due to increasing shortness of breath with cough and sputum production without fever or chills. 1. Acute on chronic kidney disease; POA; improving -Patient has a history of chronic kidney disease, stage IV, with a baseline creatinine 2; presents with creatinine 3.91 -Looks more stable and active after diuresis -Nephrology consult obtained; appreciate their input -Patient also has elevated pro-calcitonin and troponin likely related to kidney failure -Continue with Lasix 60 mg IV daily 15 function is slowly improving. 2. Possible Chronic diastolic heart failure; POA; ongoing -Last echo in July revealed a severely dilated left atrium with mild MR and a normal ejection fraction; patient states has not been compliant with his medications -Chest x-ray is edematous, ammonia is elevated likely due to congestion, and BNP (for what it is worth) is 17,000 -Lasix started as above -Echo reveals normal ventricular function and mild diastolic relaxation abnormality. -EKG reviewed and patient on telemetry 3. Doubt community-acquired pneumonia; present admission; ongoing -We will discontinue ceftriaxone 4. Type II diabetes, insulin using; POA; ongoing -Patient has a history of uncontrolled type II diabetes -Patient states he has not been compliant but his blood sugar is 107 on admission -Stop Lantus; low correctional -A1c 6.7 No changes to medical treatment. 5. Hyperammonemia with encephalopathy; POA; ongoing -Patient presents mildly confused but reports at home of the patient being confused -Ammonia level is 70; likely due to chronic hepatic congestion -Will start lactulose -Check level in a.m. 6. Chronic normocytic anemia, likely secondary to CKD; present admission; ongoing -We will continue to monitor and give blood as needed -Current hemoglobin is 7.9 -Aranesp 7. Anion gap metabolic acidosis; present on admission; ongoing -Patient presents with anion gap of 19 best explained by uremia -We will follow labs as we diurese 8. Elevated troponin; present admission; stable -Likely secondary to chronic kidney disease -No reported chest pain or EKG changes suggestive of ischemia 9. Obesity, POA. Disposition: Patient still undergoing diuresis with close nephrology care. Patient's on a constant carb diet Pain Evaluation: Adequate Pain Control GI Prophylaxis: Not indicated VTE Prophylaxis: Sub-Q Heparin (Unfractionated) Resuscitation Status: CPR: Attempt Resuscitation Time spent 30 minutes Sebastian Lange MD Dec 30, 2016 11:57
--- NOTE | 2016-12-30 16:50 | NUR ---
Lactulose He has had several diarrhea like bowel movements last night and today along with taking the lactulose. He said he really didn't want to take anymore lactulose. Spoke with Dr. Lange who said that it could be discontinued. Care continues.
[2016-12-31] VITALS (11 sets, daily range): BP systolic 132–154; BP diastolic 52–73; PULSE 61–83; RESP 16–22; O2SAT 93–99
[2016-12-31] MEDS: Benzocaine-Menthol Lozenge 2/Pkg PO PRN ×3 (00:44→19:26)
[2016-12-31 03:19] LABS: BASOPHILS % (AUTO) 0.4 % (0-3); EOSINOPHILS % (AUTO) 4.4 % (0-5); MONOCYTES % (AUTO) 7.8 % (4-12); Mean Corpuscular Hemoglobin 27.3 pg (27.0-35.0); Mean Corpuscular Volume 92.4 fL (81-100); NEUTROPHILS % (AUTO) 70.7 % (40-74); Platelet Count 293 bil/L (150-400)
--- NOTE | 2016-12-31 04:43 | NUR ---
Right Leg Wound: Large, shallow, open wound to right lower leg. Dressing changed during shift, due to very large amount of serous fluid draining from site. Pt. encouraged to elevate legs, however pt. sat at edge of bed with legs dependent intermittently throughout shift.
--- NOTE | 2016-12-31 08:25 | PCM.PNMED ---
Subjective Date of Service Dec 31, 2016 Subjective Breathing is better. Cough is less frequent. No nausea and no chest pain or abdominal pain. He was urinating frequently yesterday. His I's and O's to reflect much of a diuresis. He still has significant pedal edema. Exam Vital Signs Vital Sign - Last Date Time Temp Pulse Resp B/P Pulse Ox O2 Delivery O2 Flow Rate FiO2 12/31/16 04:50 76 12/31/16 03:32 36.7 22 142/65 98 Room Air 12/30/16 16:21 3.00 12/28/16 14:32 25 Intake and Output 12/30/16 12/30/16 12/31/16 Cumulative From/Thru 15:00 23:00 07:00 12/28/16 10:52 - 12/31/16 06:02 Intake Total 940 ml 1036 ml 3924 ml Output Total 1000 ml 550 ml 6260 ml Balance -60 ml 486 ml -2336 ml Intake Oral 820 ml 1036 ml 3286 ml IV Total 120 ml 638 ml Output Urine Total 650 ml 550 ml 5710 ml Stool Total 350 ml 550 ml # Bowel Movements 1 3 Exam Alert and oriented 3, no distress. Anicteric sclera Neck is supple. Lungs are clear with basilar rales Heart is regular without murmur. Abdomen soft nontender Extremities with 2-3+ edema pedal more than leg. IVs and Medications Medications Reviewed: Medications were reviewed in detail Lab and Diagnostics Result Diagram: 12/31/16 0255 12/31/16 0255 X-Rays, CTs and MRIs Chest X-ray IMPRESSION: Increased pulmonary vascularity and interstitial opacities within the bases as well is cardiomegaly. Findings are suspicious for overall appearance of edema. Bibasilar opacities could be insurance claim representative of focal edema versus developing airspace disease such as pneumonia. Dictated by: Giuliana Dill M.D. on 12/28/2016 at 12:17 12-lead ECG Normal sinus rhythm with a rate of 66 and notable right bundle branch block with nonspecific inversion of T-wave likely related to the bundle-branch Assessment & Plan 71-year-old male presents second time in 6 months due to increasing shortness of breath with cough and sputum production without fever or chills. 1. Acute on chronic kidney disease; POA; improving -Patient has a history of chronic kidney disease, stage IV, with a baseline creatinine 2; presents with creatinine 3.91 -Looks more stable and active after diuresis -Nephrology consult obtained; appreciate their input -Patient also has elevated pro-calcitonin and troponin likely related to kidney failure -Continue with Lasix 60 mg IV daily We will discuss increasing the frequency of Lasix with nephrology today. Kidney function is slightly worse today. 2. Possible Chronic diastolic heart failure; POA; ongoing -Last echo in July revealed a severely dilated left atrium with mild MR and a normal ejection fraction; patient states has not been compliant with his medications -Chest x-ray is edematous, ammonia is elevated likely due to congestion, and BNP (for what it is worth) is 17,000 -Lasix started as above -Echo reveals normal ventricular function and mild diastolic relaxation abnormality. -EKG reviewed and patient on telemetry Continue diuresis. 3. Doubt community-acquired pneumonia; present admission; ongoing -We will discontinue ceftriaxone 4. Type II diabetes, insulin using; POA; ongoing -Patient has a history of uncontrolled type II diabetes -Patient states he has not been compliant but his blood sugar is 107 on admission -Stop Lantus; low correctional -A1c 6.7 No changes to medical treatment. 5. Doubt Hyperammonemia with encephalopathy; POA; ongoing -Patient presents mildly confused but reports at home of the patient being confused -Ammonia level is 70; likely due to chronic hepatic congestion Stop lactulose 6. Chronic normocytic anemia, likely secondary to CKD; present admission; ongoing -We will continue to monitor and give blood as needed -Current hemoglobin is 7.9 -Aranesp 7. Metabolic acidosis; present on admission; ongoing -Patient presents with anion gap of 19 best explained by uremia -We will follow labs as we diurese This relates to his acute and chronic kidney disease. 8. Elevated troponin; present admission; stable -Likely secondary to chronic kidney disease -No reported chest pain or EKG changes suggestive of ischemia 9. Obesity, POA. Disposition: Patient still undergoing diuresis with close nephrology care. Patient's on a constant carb diet Pain Evaluation: Adequate Pain Control GI Prophylaxis: Not indicated VTE Prophylaxis: Sub-Q Heparin (Unfractionated) Resuscitation Status: CPR: Attempt Resuscitation Time spent 30 minutes Sebastian Lange MD Dec 31, 2016 08:25
[2016-12-31] MEDS: Insulin LISPRO 300 Unit/3 mL Inj SUBQ SCH ×4 (08:56→21:21)
[2016-12-31] MEDS: Heparin 5,000 Unit/mL Inj SUBQ SCH ×2 (08:57→19:26)
[2016-12-31] MEDS: Nystatin 100,000 Unit/Gm 15 Gm Powder TOPICAL SCH ×2 (08:59→19:29)
--- NOTE | 2016-12-31 10:58 | PCM.PNNEPH ---
Subjective Date of Service Dec 31, 2016 Subjective Patient's renal function continues to improve along with his mentation. This morning he denies any chest pain, shortness of breath, cough, wheezing, nausea, or vomiting. In the last 24 hours she has had 1530 in and 2000 out. This morning his hemoglobin is 7.2, sodium is 137, potassium 5.0, chloride of 100 and bicarbonate 21. BUN and creatinine are 66 and 3.5 respectively. His PSA came back normal and his urine shows a few eosinophils. Exam Vital Signs Vital Sign - Last Date Time Temp Pulse Resp B/P Pulse Ox O2 Delivery O2 Flow Rate FiO2 12/31/16 09:53 82 12/31/16 08:43 Supplement Oxygen 12/31/16 08:43 36.5 18 153/53 99 2.50 12/28/16 14:32 25 Intake and Output 12/30/16 12/30/16 12/31/16 Cumulative From/Thru 15:00 23:00 07:00 12/28/16 10:52 - 12/31/16 06:02 Intake Total 940 ml 1036 ml 3924 ml Output Total 1000 ml 550 ml 6260 ml Balance -60 ml 486 ml -2336 ml Intake Oral 820 ml 1036 ml 3286 ml IV Total 120 ml 638 ml Output Urine Total 650 ml 550 ml 5710 ml Stool Total 350 ml 550 ml # Bowel Movements 1 3 Exam HEENT examination is remarkable for pale sclera. Neck is supple without adenopathy thyromegaly. There is some jugular venous distention noted. Lungs once again diminished breath sounds in the bases but otherwise are clear. Heart was "soft systolic murmur. Abdomen is soft without any tenderness rebound guarding masses or hepatosplenomegaly. Extremities showed some mild to moderate pitting edema of the feet and lower two thirds of both lower extremities. Skin turgor is good news no evidence of any rashes. Lab and Diagnostics Result Diagram: 12/31/16 0255 12/31/16 0255 X-Rays, CTs and MRIs Chest X-ray IMPRESSION: Increased pulmonary vascularity and interstitial opacities within the bases as well is cardiomegaly. Findings are suspicious for overall appearance of edema. Bibasilar opacities could be rental sales representative of focal edema versus developing airspace disease such as pneumonia. Dictated by: Giuliana Dill M.D. on 12/28/2016 at 12:17 12-lead ECG Normal sinus rhythm with a rate of 66 and notable right bundle branch block with nonspecific inversion of T-wave likely related to the bundle-branch Plan Impression Impression #1 acute kidney injury superimposed upon chronic kidney disease which appears to be resolving number to diabetic nephropathy #3 hypertension with hypertensive heart disease and hypertensive nephrosclerosis with acute decompensated congestive heart number for cor pulmonale #5 anemia secondary to chronic kidney disease Recommendations #1 I would like to transition him over to oral torsemide 40 mg in the morning and 20 mg in the afternoon. Like to see how this works with his edema and blood pressure versus his kidney function. At one point prior to discharge we should put him back on an BABAK inhibitor once his renal function stabilizes. Luis Garcia DO Dec 31, 2016 10:58
--- NOTE | 2016-12-31 11:03 | PCM.PNNEPH ---
Subjective Date of Service Dec 31, 2016 Subjective From renal aspect patient appears to be at her baseline are very close to it. Her blood pressure is good and her only complaint is some ongoing dysphasia. This morning her sodium is 136, potassium 4.7, chloride 108, and bicarbonate is 15. Her BUN and creatinine are 2101.8 respectively. Her hemoglobin this morning is 8.1. Exam Vital Signs Vital Sign - Last Date Time Temp Pulse Resp B/P Pulse Ox O2 Delivery O2 Flow Rate FiO2 12/31/16 09:53 82 12/31/16 08:43 Supplement Oxygen 12/31/16 08:43 36.5 18 153/53 99 2.50 12/28/16 14:32 25 Intake and Output 12/30/16 12/30/16 12/31/16 Cumulative From/Thru 15:00 23:00 07:00 12/28/16 10:52 - 12/31/16 06:02 Intake Total 940 ml 1036 ml 3924 ml Output Total 1000 ml 550 ml 6260 ml Balance -60 ml 486 ml -2336 ml Intake Oral 820 ml 1036 ml 3286 ml IV Total 120 ml 638 ml Output Urine Total 650 ml 550 ml 5710 ml Stool Total 350 ml 550 ml # Bowel Movements 1 3 Exam Neck does not show any evidence of any jugular venous distention. Lungs were clear to auscultation. Heart is regular and rhythmical with a soft systolic murmur. Abdomen is soft without any tenderness rebound guarding masses or hepatosplenomegaly. Extremities not showing any evidence of any clubbing, cyanosis, or edema. Lab and Diagnostics Result Diagram: 12/31/16 0255 12/31/16 0255 X-Rays, CTs and MRIs Chest X-ray IMPRESSION: Increased pulmonary vascularity and interstitial opacities within the bases as well is cardiomegaly. Findings are suspicious for overall appearance of edema. Bibasilar opacities could be authorization representative of focal edema versus developing airspace disease such as pneumonia. Dictated by: Giuliana Dill M.D. 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 Recommendations #1 over to continue on her current medical therapy. Plan The patient will continue hyperbaric treatments. Will return () for treatment #() Luis Garcia DO Dec 31, 2016 11:03
--- NOTE | 2016-12-31 12:56 | NUR ---
Evaluation completed. Please go to "Notes" then click on "Assessments and Notes" (bottom left corner of screen). Then select appropriate discipline tab on top of screen.
--- NOTE | 2016-12-31 15:54 | NUR ---
Social Work: Brief Note Patient choiced for HH and patient did not have a preference. SW referred to vendor calendar and [facility] the [facility]. [facility] was given access to patient's chart. June Fraser LMSW, JERMAINE
--- NOTE | 2016-12-31 18:03 | NUR ---
Activity He worked with Physical Therapy today and was able to take a few steps with stand by assistance. He was excited to be able to get up and work so well with them. With the other staff he has just required stand by assistance to the bedside commode occasionally. Care continues.
[2017-01-01] VITALS (8 sets, daily range): BP systolic 116–154; BP diastolic 60–70; PULSE 67–93; RESP 16–24; O2SAT 95–99
--- NOTE | 2017-01-01 03:57 | NUR ---
Respiratory: SpO2: 98% on 9L oxymask at start of shift, pt. denied SOB. Oxygen titrated down throughout shift. Pt. now on 2L oxymask, SpO2: 94%. Pt. tolerating oxygen titration well. Pt. appears slightly SOB after walking back to bed from restroom, however pt. recovers quickly once back to bed. No overt signs or symptoms of distress. Addendum: 01/01/17 at 0408 by ASHLYN RUIZ RN DISREGARD ABOVE NOTE! WRONG PT.
--- NOTE | 2017-01-01 03:58 | NUR ---
Cough: Pt. had intermittent non-productive cough throughout shift. Pt. requested PRN throat lozenge once during shift, and refused PRN cough medicine during shift. Pt. states "I think I might be loosing my voice a little", voice is soft-spoken. Warm tea provided to soothe throat.
--- NOTE | 2017-01-01 08:09 | PCM.PNMED ---
Subjective Date of Service Jan 01, 2017 Subjective Patient is doing well. A little short of breath. Still has a cough which is dry. No chest pain or abdominal pain. No nausea. He still has pedal edema. No orthopnea. No skin rash or lesions. Exam Vital Signs Vital Sign - Last Date Time Temp Pulse Resp B/P Pulse Ox O2 Delivery O2 Flow Rate FiO2 01/01/17 04:01 36.6 77 16 127/60 98 Nasal Cannula 3.00 12/28/16 14:32 25 Intake and Output 12/31/16 12/31/16 01/01/17 Cumulative From/Thru 15:00 23:00 07:00 12/28/16 10:52 - 01/01/17 06:29 Intake Total 740 ml 560 ml 5224 ml Output Total 650 ml 800 ml 7710 ml Balance 90 ml -240 ml -2486 ml Intake Oral 740 ml 560 ml 4586 ml IV Total 638 ml Output Urine Total 650 ml 800 ml 7160 ml Stool Total 550 ml # Bowel Movements 1 4 Exam Alert oriented 3, fluent speech Anicteric sclerae. Neck supple. Lungs are clear with normal effort Heart is regular without murmur Abdomen is soft nontender. Extremities are notable for 2-3+ edema. Right lower extremity is partially wrapped. Skin is otherwise anicteric. He does have venous stasis changes over both anterior lower extremities. IVs and Medications Medications Reviewed: Medications were reviewed in detail Lab and Diagnostics Result Diagram: 12/31/1625412/31/16 025 X-Rays, CTs and MRIs Chest X-ray IMPRESSION: Increased pulmonary vascularity and interstitial opacities within the bases as well is cardiomegaly. Findings are suspicious for overall appearance of edema. Bibasilar opacities could be community health program representative of focal edema versus developing airspace disease such as pneumonia. Dictated by: Giuliana Dill M.D. on 12/28/2016 at 12:17 12-lead ECG Normal sinus rhythm with a rate of 66 and notable right bundle branch block with nonspecific inversion of T-wave likely related to the bundle-branch Assessment & Plan 71-year-old male presents second time in 6 months due to increasing shortness of breath with cough and sputum production without fever or chills. 1. Acute on chronic kidney disease; POA; improving -Patient has a history of chronic kidney disease, stage IV, with a baseline creatinine 2; presents with creatinine 3.91 -Looks more stable and active after diuresis -Nephrology consult obtained; appreciate their input -Patient also has elevated pro-calcitonin and troponin likely related to kidney failure This patient has a stable creatinine with an about 3.5. I wonder if this is not actually near his true chronic baseline. He continues to be fluid overloaded and will need a more aggressive diuresis. I will speak with nephrology about a plan this morning. 2. Possible Chronic diastolic heart failure; POA; ongoing -Last echo in July revealed a severely dilated left atrium with mild MR and a normal ejection fraction; patient states has not been compliant with his medications -Chest x-ray is edematous, ammonia is elevated likely due to congestion, and BNP (for what it is worth) is 17,000 -Lasix started as above -Echo reveals normal ventricular function and mild diastolic relaxation abnormality. -EKG reviewed and patient on telemetry Continue diuresis, no other change to medical regimen.. 3. Doubt community-acquired pneumonia; present admission; ongoing -We will discontinue ceftriaxone 4. Type II diabetes, insulin using; POA; ongoing -Patient has a history of uncontrolled type II diabetes -Patient states he has not been compliant but his blood sugar is 107 on admission -Stop Lantus; low correctional -A1c 6.7 No changes to medical treatment. 6. Chronic normocytic anemia, secondary to CKD; present admission; ongoing -We will continue to monitor and give blood as needed -Current hemoglobin is 7.9 -Aranesp 7. Metabolic acidosis; present on admission; ongoing This relates to his acute and chronic kidney disease. 8. Elevated troponin; present admission; stable -Likely secondary to chronic kidney disease -No reported chest pain or EKG changes suggestive of ischemia 9. Obesity, POA. Disposition: Patient still undergoing diuresis with close nephrology care. Patient's on a constant carb diet. The patient did well physical therapy yesterday. We will look at discharging her in the next 1 day. I will continue to diurese him an outpatient basis. Pain Evaluation: Adequate Pain Control GI Prophylaxis: Not indicated VTE Prophylaxis: Sub-Q Heparin (Unfractionated) Resuscitation Status: CPR: Attempt Resuscitation Time spent 30 min Sebastian Lange MD Jan 01, 2017 08:08
[2017-01-01] MEDS: Nystatin 100,000 Unit/Gm 15 Gm Powder TOPICAL SCH ×2 (09:06→20:31)
[2017-01-01] MEDS: Insulin LISPRO 300 Unit/3 mL Inj SUBQ SCH ×3 (09:06→17:22)
[2017-01-01] MEDS: Heparin 5,000 Unit/mL Inj SUBQ SCH ×2 (09:06→20:31)
--- NOTE | 2017-01-01 11:19 | PCM.PNNEPH ---
Subjective Date of Service Jan 01, 2017 Subjective Overall he is doing better. However he has some productive cough. Lower extremity swelling has gone down. He responded well with diuretics. Serum creatinine has slightly been up to 3.52. Exam Vital Signs Vital Sign - Last Date Time Temp Pulse Resp B/P Pulse Ox O2 Delivery O2 Flow Rate FiO2 01/01/17 09:26 86 01/01/17 08:54 Supplement Oxygen 01/01/17 08:54 36.6 20 154/70 96 2.00 12/28/16 14:32 25 Intake and Output 12/31/16 12/31/16 01/01/17 Cumulative From/Thru 15:00 23:00 07:00 12/28/16 10:52 - 01/01/17 06:29 Intake Total 740 ml 560 ml 5224 ml Output Total 650 ml 800 ml 7710 ml Balance 90 ml -240 ml -2486 ml Intake Oral 740 ml 560 ml 4586 ml IV Total 638 ml Output Urine Total 650 ml 800 ml 7160 ml Stool Total 550 ml # Bowel Movements 1 4 Exam GENERAL: The patient in no apparent distress, and alert and oriented x3. HEENT: Head is normocephalic and atraumatic. Extraocular muscles are intact. Pupils are equal, round, and reactive to light and accommodation. Nares appeared normal. Dry mucous membranes Mucous membranes are moist. Posterior pharynx clear of any exudate or lesions. NECK: Supple, no elevation of JVD, No carotid bruits. No lymphadenopathy or thyromegaly. LUNGS: Rales at the bases, expiratory wheezing and rhonchi. HEART: Normal S1/S2, Regular rate and rhythm ABDOMEN: Soft, nontender, mild distention, Positive bowel sounds. No hepatosplenomegaly was noted. EXTREMITIES: 1+ edema with chronic skin changes. : Zhong catheter in place with yellowish urine. Lab and Diagnostics Result Diagram: 12/31/16 0255 12/31/16 0255 X-Rays, CTs and MRIs Chest X-ray IMPRESSION: Increased pulmonary vascularity and interstitial opacities within the bases as well is cardiomegaly. Findings are suspicious for overall appearance of edema. Bibasilar opacities could be chemical sales representative of focal edema versus developing airspace disease such as pneumonia. Dictated by: Giuliana Dill M.D. on 12/28/2016 at 12:17 12-lead ECG Normal sinus rhythm with a rate of 66 and notable right bundle branch block with nonspecific inversion of T-wave likely related to the bundle-branch Plan Impression -Acute kidney injury on chronic kidney disease secondary to cardiorenal syndrome /ATN. Serum creatinine slightly elevated today. -Community acquired pneumonia. -Type II diabetes with diabetic nephropathy. -Metabolic acidosis. -Anemia in chronic kidney disease. Plan Continue current dosage of torsemide. Repeat UA, check urine eosinophils. Urine protein creatinine ratio. Repeat BMP in the morning. Aaron Ramirez MD Jan 01, 2017 11:19
--- NOTE | 2017-01-01 13:56 | NUR ---
NUTRITION ASSESSMENT Assess: 71 YO M admitted for CONRADO and pneumonia. Pt with good PO intake. PMHX: Type 2 DM, HTN, HLD, obesity, CKD stg IV. DIET: Renal, Consistent Carb. PO intake 75-100%. LABS: BUN 66, Cr 3.52, Glu 267, Ca 7.9, Alb 2.9 MEDICATIONS: Reviewed. Insulin. GI: 1 BM 12/31. SKIN: No issues noted. ANTHROPOMETRICS: Wt: 107.0 kg, BMI 35.9 kg/m2, Admit wt: 109.2 kg, IBW: 70 kg (153% of BW) ESTIMATED NEEDS: BMI/CONRADO/CKD Calories: 4551-7622 kcal/day (20-25 kcal/kg BW) Protein: 70-84 g/day (1.0-1.2 g/kg IBW) NUTRITION DIAGNOSIS: 1) No diagnosis at this time. INTERVENTION: 1) Continue current diet as ordered. MONITOR/EVALUATE: PO intake, labs, GI, nutrition status. Follow per moderate nutrition risk guidelines.
[2017-01-01] MEDS: ROBITUSSIN DM PO PRN (15:22)
--- NOTE | 2017-01-01 15:59 | NUR ---
Social Work Note: Readiness for Discharge Data& Assessment: SW met with pt, pt nephew, and pt brother at bedside. PT is recommending SNF due to fall risk with stairs and instability. Pt does not have insurance coverage for SNF as he is not over 60% service connected with [facility] and does not have any secondary insurance coverage. SW offered information for pt and pt family on obtaining secondary insurance, they declined at this time due to [facility] coverage. SW explained the benefits of having secondary insurance coverage and to notify SW if they change their minds. SW left voicemail for [facility] requesting they screen pt for Medicaid Eligibility. Pt family confirmed that they will SBA pt with ambulation at home to ensure safety. Pt family will be transporting pt home when medically ready. SW confirmed with [facility] that they have access to review pt for RN, PT, OT, SANITOR and SW. Pt and pt family deny any other needs at this time. SW to continue to follow if any needs arise. Plan:Anticipated discharge home via POV with [facility] PT, RN, OT, SW, SANITOR to follow. Pt and pt family deny any other needs at this time. SW to continue to follow if any needs arise. BREANA Moise
[2017-01-01 16:06] LABS: APPEARANCE,URINE SLIGHTLY CLOUDY (CLEAR,HAZY); COLOR,URINE STRAW (YELLOW); OCCULT BLOOD,URINE LARGE (NEGATIVE); UROBILINOGEN,URINE NORMAL (NORMAL)
--- NOTE | 2017-01-01 17:39 | NUR ---
Wound Care Per report, upon admission and arrival to [facility] he received a skin tear on his right hinkle when his sock was taken off. It is a superficial skin tear about the diameter of a baseball. It has a beefy red center with the torn off skin around the edges which are dying and sluffing off. A mepelex is applied over the wound. Due to increased serous weeping over the last couple of days gauze has been applied over the mepelex. Denies pain in that area. Care continues.
[2017-01-01] MEDS: Benzocaine-Menthol Lozenge 2/Pkg PO PRN (20:34)
[2017-01-02] VITALS (13 sets, daily range): BP systolic 140–157; BP diastolic 55–76; PULSE 70–93; RESP 16–22; O2SAT 93–99
[2017-01-02] MEDS: Insulin LISPRO 300 Unit/3 mL Inj SUBQ SCH ×5 (00:39→21:39)
[2017-01-02 03:06] LABS: BASOPHILS % (AUTO) 0.5 % (0-3); MONOCYTES % (AUTO) 8.7 % (4-12); Mean Corpuscular Hemoglobin 27.7 pg (27.0-35.0); Mean Corpuscular Volume 92.1 fL (81-100); NEUTROPHILS % (AUTO) 65.2 % (40-74); Platelet Count 263 bil/L (150-400)
--- NOTE | 2017-01-02 03:24 | NUR ---
Rest: Pt. resting with eyes closed in bed intermittently during shift. Pt. often sits at edge of bed and rests arms on bedside table. Pt. did not appear to achieve much sleep during shift despite grouping care activities to allow for pt. rest. Denies pain. No overt signs or symptoms of distress. Pt. pleasant and cooperative.
--- NOTE | 2017-01-02 08:13 | NUR ---
Spoke with Delphine at [place] and patient is non service connected. She is showing no other insurance at this time. Delphine will double check on this patient's MCR coverage to just double check. Updated DECK SPECIALIST
[2017-01-02] MEDS: Heparin 5,000 Unit/mL Inj SUBQ SCH ×2 (09:01→21:35)
[2017-01-02] MEDS: ROBITUSSIN DM PO PRN (09:06)
[2017-01-02] MEDS ORDERED: Furosemide 10 mg/mL 4 mL Inj IVPUSH ONE ×2 (09:45→22:05)
[2017-01-02] MEDS: Nystatin 100,000 Unit/Gm 15 Gm Powder TOPICAL SCH ×2 (10:50→20:45)
--- NOTE | 2017-01-02 11:23 | PCM.PNNEPH ---
Subjective Date of Service Jan 02, 2017 Subjective He has no new complaints today. He remains having some cough and chest congestion. Kidney function is relatively stable. Overall urine output was 2600 mL. Exam Vital Signs Vital Sign - Last Date Time Temp Pulse Resp B/P Pulse Ox O2 Delivery O2 Flow Rate FiO2 01/02/17 11:02 84 01/02/17 10:22 Room Air 01/02/17 09:06 36.7 16 140/55 94 1.00 12/28/16 14:32 25 Intake and Output 01/01/17 01/01/17 01/02/17 Cumulative From/Thru 15:00 23:00 07:00 12/28/16 10:52 - 01/02/17 06:15 Intake Total 920 ml 400 ml 6544 ml Output Total 1800 ml 1650 ml 84182 ml Balance -880 ml -1250 ml -4616 ml Intake Oral 920 ml 400 ml 5906 ml IV Total 638 ml Output Urine Total 1800 ml 1650 ml 53922 ml Stool Total 550 ml # Bowel Movements 1 1 6 Exam GENERAL: The patient in no apparent distress, and alert and oriented x3. HEENT: Head is normocephalic and atraumatic. Extraocular muscles are intact. Pupils are equal, round, and reactive to light and accommodation. Nares appeared normal. Dry mucous membranes Mucous membranes are moist. Posterior pharynx clear of any exudate or lesions. NECK: Supple, no elevation of JVD, No carotid bruits. No lymphadenopathy or thyromegaly. LUNGS: Rales at the bases, expiratory wheezing and rhonchi. HEART: Normal S1/S2, Regular rate and rhythm ABDOMEN: Soft, nontender, mild distention, Positive bowel sounds. No hepatosplenomegaly was noted. EXTREMITIES: 1+ edema with chronic skin changes. : Zhong catheter in place with yellowish urine. Lab and Diagnostics Result Diagram: 01/02/17 0250 01/02/17 0250 X-Rays, CTs and MRIs Chest X-ray IMPRESSION: Increased pulmonary vascularity and interstitial opacities within the bases as well is cardiomegaly. Findings are suspicious for overall appearance of edema. Bibasilar opacities could be aircraft sales representative of focal edema versus developing airspace disease such as pneumonia. Dictated by: Giuliana Dill M.D. on 12/28/2016 at 12:17 12-lead ECG Normal sinus rhythm with a rate of 66 and notable right bundle branch block with nonspecific inversion of T-wave likely related to the bundle-branch Plan Impression -Acute kidney injury on chronic kidney disease secondary to cardiorenal syndrome /ATN. -Community acquired pneumonia. -Type II diabetes with diabetic nephropathy. -Metabolic acidosis. -Anemia in chronic kidney disease. Plan Continue current dosage of torsemide. We will schedule aranesp 40 mcg subQ in am. We will gave one unit of packed RBC today. Discontinue Zhong catheter and monitor postvoid residual and urine output. Repeat BMP in the morning. Disposition: Within 24-48 hrs. Aaron Ramirez MD Jan 02, 2017 11:22
[2017-01-02] MEDS ORDERED: Insulin GLARgine 100 Unit/mL Syringe SUBQ ONE (12:55)
--- NOTE | 2017-01-02 12:55 | PCM.PNMED ---
Subjective Date of Service Jan 02, 2017 Subjective He is doing well. He is slightly less short of breath. He is also still quite weak but improving with physical therapy. He denies any abdominal pain nausea vomiting. No diarrhea. He has had a marginal diuresis on oral torsemide. He is also chronically anemic. He does not qualify for [facility] facility discharge because of pain or constraints. He is set up for home health however. Manager Cargo ordered a unit of blood today, as well as ongoing darbepoetin and iron supplementation. Exam Vital Signs Vital Sign - Last Date Time Temp Pulse Resp B/P Pulse Ox O2 Delivery O2 Flow Rate FiO2 01/02/17 12:03 36.8 77 16 144/62 97 Nasal Cannula 1.00 12/28/16 14:32 25 Intake and Output 01/01/17 01/01/17 01/02/17 Cumulative From/Thru 14:59 22:59 06:59 12/28/16 10:52 - 01/02/17 06:15 Intake Total 920 ml 400 ml 6544 ml Output Total 1800 ml 1650 ml 97396 ml Balance -880 ml -1250 ml -4616 ml Intake Oral 920 ml 400 ml 5906 ml IV Total 638 ml Output Urine Total 1800 ml 1650 ml 56935 ml Stool Total 550 ml # Bowel Movements 1 1 6 Exam Alert oriented 3, in no distress. Fluent speech Neck supple. Lungs are clear with basilar rales. Heart is regular without murmur gallop or rub. Abdomen is soft nontender Extremities 2+ edema bilaterally, symmetric. IVs and Medications Medications Reviewed: Medications were reviewed in detail Lab and Diagnostics Result Diagram: 01/02/17 0250 01/02/17 0250 X-Rays, CTs and MRIs Chest X-ray IMPRESSION: Increased pulmonary vascularity and interstitial opacities within the bases as well is cardiomegaly. Findings are suspicious for overall appearance of edema. Bibasilar opacities could be sales solutions representative of focal edema versus developing airspace disease such as pneumonia. Dictated by: Giuliana Dill M.D. on 12/28/2016 at 12:17 12-lead ECG Normal sinus rhythm with a rate of 66 and notable right bundle branch block with nonspecific inversion of T-wave likely related to the bundle-branch Assessment & Plan 71-year-old male presents second time in 6 months due to increasing shortness of breath with cough and sputum production without fever or chills. 1. Acute on chronic kidney disease; POA; improving -Patient has a history of chronic kidney disease, stage IV, with a baseline creatinine 2; presents with creatinine 3.91 Patient continues to be stable or possibly slowly improving with regards to his acute renal failure. He remains volume overloaded. Plan is to continue oral diuretics. 2. Possible Chronic diastolic heart failure; POA; ongoing -Last echo in July revealed a severely dilated left atrium with mild MR and a normal ejection fraction; patient states has not been compliant with his medications Continue diuresis, no other change to medical regimen.. 3. Type II diabetes, insulin using; POA; ongoing -Patient has a history of uncontrolled type II diabetes -Patient states he has not been compliant but his blood sugar is 107 on admission -Stop Lantus; low correctional -A1c 6.7 He is a little hyperglycemic. We will reinstitute Lantus at 5 at bedtime. 5. Chronic normocytic anemia, secondary to CKD; present admission; ongoing -We will continue to monitor and give blood as needed -Current hemoglobin is 7.9 -Aranesp per nephrology. 7. Metabolic acidosis; present on admission; ongoing This relates to his acute and chronic kidney disease. 8. Elevated troponin; present admission; stable -Likely secondary to chronic kidney disease -No reported chest pain or EKG changes suggestive of ischemia 9. Obesity, POA. Anticipate discharge to home either January 03 or with home health services. This will entail a discussion with nephrology prior to discharge. Pain Evaluation: Adequate Pain Control GI Prophylaxis: Not indicated VTE Prophylaxis: Sub-Q Heparin (Unfractionated) Resuscitation Status: CPR: Attempt Resuscitation Time spent 30 min Sebastian Lange MD Jan 02, 2017 12:55
--- NOTE | 2017-01-02 13:09 | DRSVH ---
PROCEDURE: X-RAY CHEST ONE VIEW, PORTABLE ([id number]) INDICATIONS: CONGESTIVE HEART FAILURE TECHNIQUE: One view of the chest was acquired. COMPARISON: [facility], CR, XR CHEST 1VW (PORTABLE), 12/28/2016, 11:38. FINDINGS: Surgical changes and devices: None. Lungs and pleura: No pleural effusions or pneumothorax. Resolving edema. Mediastinum: Mediastinal contours appear normal. Heart size is normal. Bones and chest wall: No suspicious bony lesions. Overlying soft tissues appear unremarkable. IMPRESSION: Resolving pulmonary edema. Dictated by: Delroy Wang [facility] Interpreted: Abdiaziz Westfall MD on 01/02/2017 at 13:08 Transcribed by: JUAN on 01/02/2017 at 13:09 Approved by: Abdiaziz Westfall M.D. on 01/02/2017 at 17:13
--- NOTE | 2017-01-02 15:59 | NUR ---
Social Work Note: Readiness for Discharge Data& Assessment: Per [facility], pt does not meet criteria for Medicaid at this time. Pt is non [facility] with [facility]. SW met with pt and pt family at bedside to discuss discharge planning. SW provided pt with financial assistance application through the hospital as well as information on [facility] in [facility] to help pt get enrolled with insurance coverage. PT is recommending FWW at time of discharge. Pt confirmed he has a walker at home that he uses, pt family explained he also has a 4WW with a seat at home he can use as well. Pt confirms plan to discharge home via POV with [facility] PT, RN, OT, AGATA, BIA to follow. Pt family transporting pt home when medically ready. Pt and pt family deny any other needs at this time. SW to continue to follow if any needs arise. Plan: Anticipated discharge home via POV with [facility] PT, RN, OT, AGATA, BIA to follow. Pt and pt family deny any other needs at this time. SW to continue to follow if any needs arise. BREANA Moise
--- NOTE | 2017-01-02 19:33 | NUR ---
Blood products/Diuresing pt currently has PRBCs hanging at 125/hr with NS. Tolerating well. VS stable. No c/o discomfort. Pt has been receiving Torsemide today and voiding normally into young cath. Urine pale yellow in color. Bilateral feet, ankles, and lower legs are pitting edema. Lungs decreased with rales in the bases bilaterally.
[2017-01-02] MEDS: Insulin GLARgine 100 Unit/mL Syringe SUBQ SCH (21:40)
[2017-01-03] VITALS (10 sets, daily range): BP systolic 146–164; BP diastolic 64–81; PULSE 79–97; RESP 16–20; O2SAT 95–99
--- NOTE | 2017-01-03 04:00 | NUR ---
Diuresis/Zhong: Pt tolerated 1 unit of PRBCs without complication. Pt received 40 mg of IV lasix post transfusion. Zhong catheter dc'd without complication. Pt voided; no PVR noted with bladder scanner.
[2017-01-03] MEDS: Insulin LISPRO 300 Unit/3 mL Inj SUBQ SCH ×4 (08:00→21:06)
[2017-01-03] MEDS ORDERED: Darbepoetin Alfa 40 mCg/0.4 mL Inj SUBQ ONE (08:00)
[2017-01-03] MEDS: Heparin 5,000 Unit/mL Inj SUBQ SCH ×2 (08:39→20:24)
[2017-01-03] MEDS: Nystatin 100,000 Unit/Gm 15 Gm Powder TOPICAL SCH ×2 (08:39→20:23)
[2017-01-03 09:44] LABS: BASOPHILS % (AUTO) 0.6 % (0-3); EOSINOPHILS % (AUTO) 4.7 % (0-5); MONOCYTES % (AUTO) 8.3 % (4-12); Mean Corpuscular Hemoglobin 27.9 pg (27.0-35.0); NEUTROPHILS % (AUTO) 65.4 % (40-74); Platelet Count 297 bil/L (150-400)
--- NOTE | 2017-01-03 11:31 | PCM.PNNEPH ---
Subjective Date of Service Jan 03, 2017 Subjective He is feeling better overall. He received blood transfusion yesterday current hemoglobin is 9.0. Serum creatinine is gradually trending down. Zhong catheter was removed yesterday. He did not report any difficulty urinating. Exam Vital Signs Vital Sign - Last Date Time Temp Pulse Resp B/P Pulse Ox O2 Delivery O2 Flow Rate FiO2 01/03/17 08:41 37.5 86 16 155/70 95 Nasal Cannula 1.00 12/28/16 14:32 25 Intake and Output 01/02/17 01/02/17 01/03/17 Cumulative From/Thru 15:00 23:00 07:00 12/28/16 10:52 - 01/03/17 06:30 Intake Total 1059 ml 600 ml 8203 ml Output Total 2850 ml 2950 ml 27169 ml Balance -1791 ml -2350 ml -8757 ml Intake Oral 620 ml 600 ml 7126 ml IV Total 50 ml 688 ml Packed Cells 389 ml 389 ml Output Urine Total 2850 ml 2950 ml 61050 ml Stool Total 550 ml # Bowel Movements 1 1 8 Exam GENERAL: The patient in no apparent distress, and alert and oriented x3. HEENT: Head is normocephalic and atraumatic. Extraocular muscles are intact. Pupils are equal, round, and reactive to light and accommodation. Nares appeared normal. NECK: Supple, no elevation of JVD, No carotid bruits. No lymphadenopathy or thyromegaly. LUNGS: Coarse crackles at bases. Occasional rhonchi noted. HEART: Normal S1/S2, Regular rate and rhythm ABDOMEN: Soft, nontender, mild distention, Positive bowel sounds. No hepatosplenomegaly was noted. EXTREMITIES: trace edema with chronic skin changes. Lab and Diagnostics Result Diagram: 01/03/1792101/03/17921 X-Rays, CTs and MRIs Chest X-ray IMPRESSION: Increased pulmonary vascularity and interstitial opacities within the bases as well is cardiomegaly. Findings are suspicious for overall appearance of edema. Bibasilar opacities could be dental sales representative of focal edema versus developing airspace disease such as pneumonia. Dictated by: Giuliana Dill M.D. on 12/28/2016 at 12:17 12-lead ECG Normal sinus rhythm with a rate of 66 and notable right bundle branch block with nonspecific inversion of T-wave likely related to the bundle-branch Plan Impression -Acute kidney injury on chronic kidney disease secondary to cardiorenal syndrome /ATN. -Community acquired pneumonia. -Type II diabetes with diabetic nephropathy. -Metabolic acidosis. -Anemia in chronic kidney disease status post breast transfusion and aranesp injection. Plan Continue current dosage of torsemide. We will give another dose of Aranesp today 40 g 1. Per renal standpoint, patient can be discharged home. Follow-up within 1 week. Aaron Ramirez MD Jan 03, 2017 11:31
--- NOTE | 2017-01-03 14:02 | PCM.PNMED ---
Subjective Date of Service Jan 03, 2017 Subjective Patient has no complaints today. He has worked with physical therapy today. Exam Vital Signs Vital Sign - Last Date Time Temp Pulse Resp B/P Pulse Ox O2 Delivery O2 Flow Rate FiO2 01/03/17 12:34 37.0 79 20 151/64 97 Nasal Cannula 1.00 12/28/16 14:32 25 Intake and Output 01/02/17 01/02/17 01/03/17 Cumulative From/Thru 15:00 23:00 07:00 12/28/16 10:52 - 01/03/17 06:30 Intake Total 1059 ml 600 ml 8203 ml Output Total 2850 ml 2950 ml 67984 ml Balance -1791 ml -2350 ml -8757 ml Intake Oral 620 ml 600 ml 7126 ml IV Total 50 ml 688 ml Packed Cells 389 ml 389 ml Output Urine Total 2850 ml 2950 ml 67342 ml Stool Total 550 ml # Bowel Movements 1 1 8 Exam Constitutional: Elderly male in no acute distress Head: Normocephalic atraumatic Chest: Decreased breath sounds at his bases Cor: Regular rate and rhythm S1-S2 Abdomen: Soft nontender bowel sounds present Extremities: He is dressed and left reveals chronic venous stasis changes present Neuro: Alert and oriented 3, motor strength is intact bilaterally Lab and Diagnostics Laboratory Tests 72 Hours Test 01/01/17 15:30 01/02/17 02:50 01/02/17 11:50 01/03/17 09:22 Urine Color Straw (YELLOW) Urine Appearance Slightly cloudy Urine pH 5.0 (5.0-8.0) Urine Specific [place] 1.015 (1.003-1.035) Urine Protein 100mg/dL (NEG,TRACE) Urine Glucose (UA) 100mg/dL (NEGATIVE) Urine Ketones Negativemg/dL (NEGATIVE) Urine Occult Blood Large (NEGATIVE) Urine Nitrite Negative (NEGATIVE) Urine Bilirubin Negative (NEGATIVE) Urine Urobilinogen Normalmg/dL (NORMAL) Urine Leukocyte Esterase Small (NEGATIVE) Urine RBC 3-10/hpf (0-2) Urine WBC 6-10/hpf (0-5) Urine Epithelial Cells Moderate/hpf (NONE-MOD) Urine Crystals None seen (NONE SEEN) Urine Bacteria Moderate/hpf (NONE-FEW) Urine Hyaline Casts None/lpf (NONE) Urine Granular Casts None seen (NONE SEEN) Urine Waxy Casts None seen (NONE SEEN) Urine Red Blood Cell Casts None seen (NONE SEEN) Urine White Blood Cell Casts None seen (NONE SEEN) Urine Mucus None seen (None Seen) Urine Trichomonas None seen (NONE SEEN) Urine Yeast None (NONE SEEN) Urinalysis Comment None Urine Culture Reflexed Indicated Urine Random Creatinine 41mg/dL (22-328) Urine Random Total Protein 109mg/dL (0-15) White Blood Count 10.5th/mm3 (3.8-10.1) 10.1th/mm3 (3.8-10.1) Red Blood Count 2.53mil/mm3 (4.40-5.80) 3.23mil/mm3 (4.40-5.80) Hemoglobin 7.0g/dL (13.8-17.2) 9.0g/dL (13.8-17.2) Hematocrit 23.3% (41.0-50.0) 29.4% (41.0-50.0) Mean Corpuscular Volume 92.1fL (81-100) 91.0fL (81-100) Mean Corpuscular Hemoglobin 27.7pg (27.0-35.0) 27.9pg (27.0-35.0) Mean Corpuscular Hemoglobin Concent 30.0% (32.0-37.0) 30.6% (32.0-37.0) Red Cell Distribution Width 16.2% (12.3-15.4) 16.2% (12.3-15.4) Platelet Count 263bil/L (150-400) 297bil/L (150-400) Neutrophils (%) (Auto) 65.2% (40-74) 65.4% (40-74) Lymphocytes (%) (Auto) 19.3% (14-46) 20.1% (14-46) Monocytes (%) (Auto) 8.7% (4-12) 8.3% (4-12) Eosinophils (%) (Auto) 5.0% (0-5) 4.7% (0-5) Basophils (%) (Auto) 0.5% (0-3) 0.6% (0-3) Sodium Level 138mEq/L (134-144) 138mEq/L (134-144) Potassium Level 4.8mEq/L (3.5-5.2) 4.5mEq/L (3.5-5.2) Chloride Level 101mEq/L (97-108) 97mEq/L (97-108) Carbon Dioxide Level 23mmol/L (18-29) 26mmol/L (18-29) Blood Urea Nitrogen 61mg/dL (8-27) 53mg/dL (8-27) Creatinine 3.52mg/dL (0.76-1.27) 3.08mg/dL (0.76-1.27) Estimat Glomerular Filtration Rate 18mL/min (>59) 21mL/min (>59) Glucose Level 229mg/dL (60-99) 163mg/dL (60-99) Calcium Level 7.9mg/dL (8.5-10.1) 8.4mg/dL (8.5-10.1) Phosphorus Level 4.4mg/dL (2.5-4.9) Pro-B-Type Natriuretic Peptide 87965xe/mL (0-376) Hepatitis B Surface Antigen Negative (Negative) HIV (1&2) Ag and Ab, 4th Generation Non reactive (Non Reactive) Result Diagram: 01/03/1792101/03/17 0922 X-Rays, CTs and MRIs Chest X-ray IMPRESSION: Increased pulmonary vascularity and interstitial opacities within the bases as well is cardiomegaly. Findings are suspicious for overall appearance of edema. Bibasilar opacities could be client account representative of focal edema versus developing airspace disease such as pneumonia. Dictated by: Giuliana Dill M.D. on 12/28/2016 at 12:17 Patient Name: ESTIVEN HERR MR#: [id number] Location: [facility] Ordering Phys: Aaron Ramirez MD Date of Service: 01/02/17 0941 PROCEDURE: X-RAY CHEST ONE VIEW, PORTABLE ([id number]) INDICATIONS: CONGESTIVE HEART FAILURE TECHNIQUE: One view of the chest was acquired. COMPARISON: [facility], CR, XR CHEST 1VW (PORTABLE), 12/28/2016, 11: 38. FINDINGS: Surgical changes and devices: None. Lungs and pleura: No pleural effusions or pneumothorax. Resolving edema. Mediastinum: Mediastinal contours appear normal. Heart size is normal. Bones and chest wall: No suspicious bony lesions. Overlying soft tissues appear unremarkable. IMPRESSION: Resolving pulmonary edema. Dictated by: Delroy Wang RRA Interpreted: Abdiaziz Westfall MD on 01/02/2017 at 13 :08 Transcribed by: JUAN on 01/02/2017 at 13:09 Approved by: Abdiaziz Westfall M.D. on 01/02/2017 at 17:13 12-lead ECG Normal sinus rhythm with a rate of 66 and notable right bundle branch block with nonspecific inversion of T-wave likely related to the bundle-branch Assessment & Plan 71-year-old male presents second time in 6 months due to increasing shortness of breath with cough and sputum production without fever or chills. 1. Acute on chronic kidney disease; POA; improving -Patient has a history of chronic kidney disease, stage IV, with a baseline creatinine 2; presents with creatinine 3.91 Patient continues to be stable or possibly slowly improving with regards to his acute renal failure. He remains volume overloaded. Plan is to continue oral diuretics. 2. Possible Chronic diastolic heart failure; POA; ongoing -Last echo in July revealed a severely dilated left atrium with mild MR and a normal ejection fraction; patient states has not been compliant with his medications Continue diuresis, no other change to medical regimen. 3. Type II diabetes, insulin using; POA; ongoing -Patient has a history of uncontrolled type II diabetes -Patient states he has not been compliant but his blood sugar is 107 on admission -Stop Lantus; low correctional -A1c 6.7 He is a little hyperglycemic. We will reinstitute Lantus at 5 at bedtime. 5. Chronic normocytic anemia, secondary to CKD; present admission; ongoing -We will continue to monitor and give blood as needed -Current hemoglobin is 7.9 -Aranesp per nephrology. 7. Metabolic acidosis; present on admission; ongoing This relates to his acute and chronic kidney disease. 8. Elevated troponin; present admission; stable -Likely secondary to chronic kidney disease -No reported chest pain or EKG changes suggestive of ischemia 9. Obesity, POA. Anticipate discharge to home either January 04 with home health services. Nephrology is on board with discharge home tomorrow. GI Prophylaxis: Not indicated VTE Prophylaxis: Sub-Q Heparin (Unfractionated) Resuscitation Status: CPR: Attempt Resuscitation Time spent 30 minutes Tara Brown MD Jan 03, 2017 14:02
--- NOTE | 2017-01-03 15:36 | NUR ---
Wound Care Wound evaluation orders received, patient seen at bedside. [place] 71 yo male with history of type 2 diabetes admitted for shortness of breath. Presents with an ulceration at his right lateral calf which he reports to have had for the past year. He has skin changes at his legs consistent with venous hypertension. Ulcer measures 10 cm in L x 6 cm in W x 0.2 cm in D. Wound base is granular with a layer of thin biofilm that is easily removed with 4x4 gauze mechanically. Wound was redressed with xeroform, abd pad, kerlix and coban wrap, patient comfortable after treatment today. Venous stasis ulcer uninfected, nonhealing in the setting of diabetes and lower extremity edema. Will recheck on this patient tomorrow.
--- NOTE | 2017-01-03 19:30 | NUR ---
Skin Edema present throughout bilateral feet, ankles, and lower legs. Receiving torsemide and voiding well. R leg is wrapped in sandra wrap, pt states it is comfortable. Skin tear underneath covered by mepilex. Bilateral groin folds slightly pink.
[2017-01-03] MEDS: Insulin GLARgine 100 Unit/mL Syringe SUBQ SCH (21:06)
[2017-01-04 03:22] VITALS: PULSE 93
[2017-01-04 03:45] VITALS: BP 168/63; PULSE 90; RESP 16; O2SAT 96
--- NOTE | 2017-01-04 05:17 | NUR ---
Telemetry/Activity Tele: SR HR 87 with sinus arrhythmia, multifocal PVC, PAC, IVCD per imaging technologist. Asymptomatic. Pt continued to sit on the side of the bed for urinal usage or to rest with blankets wrapped around his shoulders. Adequate production of emma colored urine noted. Pt did not get out of bed. Non slip socks on for safety. Care ongoing.
[2017-01-04] MEDS ORDERED: Isosorbide Mononitrate 30 mg ER24 Tablet PO SCH (07:30)
[2017-01-04 07:53] VITALS: BP 164/82; PULSE 82; RESP 18; O2SAT 97
[2017-01-04] MEDS: Insulin LISPRO 300 Unit/3 mL Inj SUBQ SCH ×2 (07:58→12:48)
[2017-01-04 08:00] VITALS: PULSE 89
[2017-01-04] MEDS: Heparin 5,000 Unit/mL Inj SUBQ SCH (08:30)
[2017-01-04] MEDS: Nystatin 100,000 Unit/Gm 15 Gm Powder TOPICAL SCH (09:02)
--- NOTE | 2017-01-04 09:09 | PCM.DIMED ---
Discharge Instructions Date of Service Jan 04, 2017 Dates of Hospitalization Dec 28, 2016 at 14:39 Discharge Diagnosis Discharge Diagnosis Acute renal failure, acute diastolic congestive heart failure, generalized edema , type II diabetes Test Results Laboratory Tests 72 Hours Test 01/01/17 15:30 01/02/17 02:50 01/02/17 11:50 01/03/17 09:22 Urine Color Straw (YELLOW) Urine Appearance Slightly cloudy Urine pH 5.0 (5.0-8.0) Urine Specific [place] 1.015 (1.003-1.035) Urine Protein 100mg/dL (NEG,TRACE) Urine Glucose (UA) 100mg/dL (NEGATIVE) Urine Ketones Negativemg/dL (NEGATIVE) Urine Occult Blood Large (NEGATIVE) Urine Nitrite Negative (NEGATIVE) Urine Bilirubin Negative (NEGATIVE) Urine Urobilinogen Normalmg/dL (NORMAL) Urine Leukocyte Esterase Small (NEGATIVE) Urine RBC 3-10/hpf (0-2) Urine WBC 6-10/hpf (0-5) Urine Epithelial Cells Moderate/hpf (NONE-MOD) Urine Crystals None seen (NONE SEEN) Urine Bacteria Moderate/hpf (NONE-FEW) Urine Hyaline Casts None/lpf (NONE) Urine Granular Casts None seen (NONE SEEN) Urine Waxy Casts None seen (NONE SEEN) Urine Red Blood Cell Casts None seen (NONE SEEN) Urine White Blood Cell Casts None seen (NONE SEEN) Urine Mucus None seen (None Seen) Urine Trichomonas None seen (NONE SEEN) Urine Yeast None (NONE SEEN) Urinalysis Comment None Urine Culture Reflexed Indicated Urine Random Creatinine 41mg/dL (22-328) Urine Random Total Protein 109mg/dL (0-15) White Blood Count 10.5th/mm3 (3.8-10.1) 10.1th/mm3 (3.8-10.1) Red Blood Count 2.53mil/mm3 (4.40-5.80) 3.23mil/mm3 (4.40-5.80) Hemoglobin 7.0g/dL (13.8-17.2) 9.0g/dL (13.8-17.2) Hematocrit 23.3% (41.0-50.0) 29.4% (41.0-50.0) Mean Corpuscular Volume 92.1fL (81-100) 91.0fL (81-100) Mean Corpuscular Hemoglobin 27.7pg (27.0-35.0) 27.9pg (27.0-35.0) Mean Corpuscular Hemoglobin Concent 30.0% (32.0-37.0) 30.6% (32.0-37.0) Red Cell Distribution Width 16.2% (12.3-15.4) 16.2% (12.3-15.4) Platelet Count 263bil/L (150-400) 297bil/L (150-400) Neutrophils (%) (Auto) 65.2% (40-74) 65.4% (40-74) Lymphocytes (%) (Auto) 19.3% (14-46) 20.1% (14-46) Monocytes (%) (Auto) 8.7% (4-12) 8.3% (4-12) Eosinophils (%) (Auto) 5.0% (0-5) 4.7% (0-5) Basophils (%) (Auto) 0.5% (0-3) 0.6% (0-3) Sodium Level 138mEq/L (134-144) 138mEq/L (134-144) Potassium Level 4.8mEq/L (3.5-5.2) 4.5mEq/L (3.5-5.2) Chloride Level 101mEq/L (97-108) 97mEq/L (97-108) Carbon Dioxide Level 23mmol/L (18-29) 26mmol/L (18-29) Blood Urea Nitrogen 61mg/dL (8-27) 53mg/dL (8-27) Creatinine 3.52mg/dL (0.76-1.27) 3.08mg/dL (0.76-1.27) Estimat Glomerular Filtration Rate 18mL/min (>59) 21mL/min (>59) Glucose Level 229mg/dL (60-99) 163mg/dL (60-99) Calcium Level 7.9mg/dL (8.5-10.1) 8.4mg/dL (8.5-10.1) Phosphorus Level 4.4mg/dL (2.5-4.9) Pro-B-Type Natriuretic Peptide 51710lr/mL (0-376) Hepatitis B Surface Antigen Negative (Negative) HIV (1&2) Ag and Ab, 4th Generation Non reactive (Non Reactive) Diet Low fat, Low Sodium, Diabetic, Renal Diet Activity Other (as tolerated) Call your provider Fever or Chills, Shortness of breath, Bleeding, Chest pain, Vomitting, Excessive diarrhea, Weakness (unilateral) Patient Instructions Follow-up Provider: [facility] Follow-up with PCP in: 1 week Tara Brown MD Jan 04, 2017 09:09
[2017-01-04] MEDS ORDERED: INSLIS SUBQ (09:15)
[2017-01-04] MEDS ORDERED: DOXY100T2 PO (09:15)
[2017-01-04] MEDS ORDERED: TORS20TA PO (09:15)
[2017-01-04] MEDS ORDERED: BENZ100C8 PO (09:15)
--- NOTE | 2017-01-04 09:19 | PCM.DC.MED ---
Discharge Summary Date of Service Jan 04, 2017 Dates of Hospitalization Date of Hospital Admission Dec 28, 2016 at 14:39 Date of Discharge: Jan 04, 2017 Providers: Admitting Physician: Tra Hill MD [facility] Physician: Tra Hill MD Diagnosis at Time of Discharge Diagnosis at Time of Discharge Acute renal failure, acute diastolic congestive heart failure, generalized edema , type II diabetes Consultations Nephrology,Infectious Disease Procedures XRay, CTs & MRIs Chest X-ray IMPRESSION: Increased pulmonary vascularity and interstitial opacities within the bases as well is cardiomegaly. Findings are suspicious for overall appearance of edema. Bibasilar opacities could be sales training representative of focal edema versus developing airspace disease such as pneumonia. Dictated by: Giuliana Dill M.D. on 12/28/2016 at 12:17 Patient Name: ESTIVEN HERR MR#: [id number] Location: [facility] Ordering Phys: Aaron Ramirez MD Date of Service: 01/02/17 0941 PROCEDURE: X-RAY CHEST ONE VIEW, PORTABLE ([id number]) INDICATIONS: CONGESTIVE HEART FAILURE TECHNIQUE: One view of the chest was acquired. COMPARISON: [facility], CR, XR CHEST 1VW (PORTABLE), 12/28/2016, 11: 38. FINDINGS: Surgical changes and devices: None. Lungs and pleura: No pleural effusions or pneumothorax. Resolving edema. Mediastinum: Mediastinal contours appear normal. Heart size is normal. Bones and chest wall: No suspicious bony lesions. Overlying soft tissues appear unremarkable. IMPRESSION: Resolving pulmonary edema. Dictated by: Delroy Wang [facility] Interpreted: Abdiaziz Westfall MD on 01/02/2017 at 13 :08 Transcribed by: JUAN on 01/02/2017 at 13:09 Approved by: Abdiaziz Westfall M.D. on 01/02/2017 at 17:13 ECG 12 Lead Normal sinus rhythm with a rate of 66 and notable right bundle branch block with nonspecific inversion of T-wave likely related to the bundle-branch Cardiac Echo Impression Patient Name: ESTIVEN HERR MR#: [id number] Location: [facility] Ordering Phys: Adama Ordaz DO Date of Service: 12/29/16 0800 [facility] [address] [place] [address] Echocardiogram Report Name: ESTIVEN HERR Study Date: 12/29/2016 Height: 68 in Hospital Exam Location: [facility] Weight: 241 lb Gender: Male BSA: 2.2 m2 : 1945 Age: 71 yrs BP: 143/64 mmHg Reason For Study: Pulmonary edema Ordering Physician: Performed By: [facility] Interpretation Summary Left ventricular systolic function is normal without focal wall motion abnormalities with the ejection fraction visually estimated to be 60-65%. Left ventricular wall thickness is mildly increased and diastolic parameters suggest a pseudonormalization pattern with a E/E' ratio that is mildly increased, suggesting possible increased filling pressures, but likely slightly lower compared to the previous study. The right ventricle is not well visualized but grossly appears to be mildly dilated with right ventricular systolic function that is mildly reduced but likely unchanged compared to the previous study. There is moderate pulmonary hypertension with the right ventricular systolic pressure estimated at 49 mmHg assuming a right atrial pressure of 15 mm Hg, and is unchanged compared to the previous study. The left atrium is severely dilated but is unchanged compared to the previous study. There is mild to moderate mitral regurgitation that is unchanged and mild tricuspid regurgitation that appears is less prominent compared to the previous study. There is no other significant valvular heart disease. Procedure: A two-dimensional transthoracic echocardiogram with color flow and Doppler was performed. The study quality was technically adequate. Comparison is made with the echocardiogram of 07/19/16. Left Ventricle: The left ventricle is normal in size. Left ventricular wall thickness is mildly increased. Left ventricular systolic function is normal without focal wall motion abnormalities. The ejection fraction is estimated to be 60-65%. Assessment of diastolic parameters suggests a pseudonormalization pattern, consistent with elevated filling pressures. The E/E' ratio is mildly increased, suggesting possible increased filling pressures. This is likely slightly lower compared to the previous study. Right Ventricle: The right ventricle is not well visualized. The right ventricle is mildly dilated. Right ventricular systolic function is mildly reduced. This is likely unchanged compared to the previous study. Atria: The left atrium is severely dilated. The right atrium is normal in size. This is unchanged compared to the previous study. The interatrial septum is intact with no evidence for an atrial septal defect. Mitral Valve: There is mild to moderate mitral annular calcification. The mitral valve leaflets are mildly calcified. There is mild to moderate mitral regurgitation. This is unchanged compared to the previous study. Aortic Valve: The aortic valve is normal in structure and function. The aortic valve is trileaflet. The aortic valve is slightly calcified. The aortic valve opens well. No aortic regurgitation is present. Tricuspid Valve: The tricuspid valve is normal in structure and function. There is mild tricuspid regurgitation. This is less prominent compared to the previous study. There is moderate pulmonary hypertension. The right ventricular systolic pressure is estimated at 49 mmHg assuming a right atrial pressure of 15 mm Hg. This is unchanged compared to the previous study. Pulmonic Valve: The pulmonic valve is normal in structure and function. There is a trace or physiologic amount of pulmonic regurgitation. There is no other significant valvular heart disease. Great Vessels: The aortic root is normal size. The dimensions of the ascending aorta are normal. The aortic arch could not be visualized. The pulmonary artery is normal size. The IVC is dilated (diameter is greater than 2.1 cm) and it collapses less than 50% with a sniff. This suggests a high right atrial pressure of 15 mm Hg. Pericardium/ Pleura There is no pericardial effusion. There is no pleural effusion. MMode/2D Measurements & Calculations LVIDd: 5.5 cm LA dimension: 4.8 cm RA long axis Ao root diam LVIDs: 3.1 cm FS: 43.2 % LA A2 area: 33.8 cm RA area asc Aorta IVSd: 1.3 cm LA A4 area: 32.4 cm Diam: 3.0 cm LVPWd: 0.81 cm LA length (vol): 7.2 cm : 19.0 cm LA vol: 129.4 ml RA vol: 55.7 ml LA vol index RA : 25.2 mm2 IVC diam: 2.5 cm LV zepeda. diameter/BSA LV sys. diameter/BSA RVD1 (basal) (cm/m^2): 2.5 (cm/m^2): 1.4 Doppler Measurements & Calculations Ao V2 max MV E max gonzalo MV E/A: 1.6 TR max gonzalo : 165.5 cm/sec : 142.3 cm/sec Med Peak E' Gonzalo : 291.6 cm/sec Ao max PG MV A max gonzalo TR max PG : 11.0 mmHg : 87.8 cm/sec E/E' med: 18.0 : 34.0 mmHg Ao mean PG MV P1/2t: 34.7 msec Lat Peak E' Gonzalo PA V2 max : 6.2 mmHg : 127.7 cm/sec E/E' lat: 13.4 PA mean PG E/e' average: 15.7 MV A dur: 0.15 sec PA Accel Time : 0.08 sec MV V2 mean MV P1/2t max gonzalo Ao V2 mean PA V2 mean : 82.8 cm/sec : 118.4 cm/sec : 85.5 cm/sec MV mean PG Ao V2 VTI: 34.4 cm MVA(P1/2t): 6.3 cm2 MV V2 VTI MV dec time : 0.12 sec Reading Physician:05:54 PM Brief History 71-year-old male with a history of diabetes, stage IV chronic kidney disease, and hypertension with admission for possible CHF exacerbation in July 2016 who presents to the ED today due to 2 months of progressive shortness of breath , orthopnea, PND, increased lower extremity edema, lower exercise tolerance, increasing cough, increasing sputum production. Patient also endorses chills without fever. Patient states that this started 2 months ago and is progressing to include shortness of breath with walking up stairs and around his house. He is unable to lay flat. Family reports confusion over the last couple of days and brought the patient to the hospital. Patient admits he has not been compliant with his home medications. He also did not follow up with nephrology after his last visit. In the ED the patient was placed on BiPAP due to shortness of breath. He is also started on azithromycin and ceftriaxone as well as doxycycline for presumed coverage of community acquired pneumonia. Venous blood gas was obtained in the ED showed a pH of 7.31, PCO2 41.2, PO2 51.5, bicarbonate of 20.1 , saturation of 86.6. White count 12.6, hemoglobin 7.9, hematocrit 26.0, platelet count of 336, neutrophils 83% Sodium 138, potassium 5.8, chloride 103, bicarbonate 16, BUN 74, creatinine 3.91 , glucose 107, troponin 0.052, BNP 16,962, profiles time 1.45 Lactic acid is 1, ammonia is 70; liver function normal Hospital Course 71-year-old male presents second time in 6 months due to increasing shortness of breath with cough and sputum production without fever or chills. 1. Acute on chronic kidney disease; POA; improving -Patient has a history of chronic kidney disease, stage IV, with a baseline creatinine 2; presents with creatinine 3.91 Patient continues to be stable or possibly slowly improving with regards to his acute renal failure. He remains volume overloaded. Plan is to continue oral diuretics. 2. Possible Chronic diastolic heart failure; POA; ongoing -Last echo in July revealed a severely dilated left atrium with mild MR and a normal ejection fraction; patient states has not been compliant with his medications Continue diuresis, no other change to medical regimen. 3. Type II diabetes, insulin using; POA; ongoing -Patient has a history of uncontrolled type II diabetes -Patient states he has not been compliant but his blood sugar is 107 on admission -Stop Lantus; low correctional -A1c 6.7 He is a little hyperglycemic. We will reinstitute Lantus at 5 at bedtime. 5. Chronic normocytic anemia, secondary to CKD; present admission; ongoing -We will continue to monitor and give blood as needed -Current hemoglobin is 7.9 -Aranesp per nephrology. 7. Metabolic acidosis; present on admission; ongoing This relates to his acute and chronic kidney disease. 8. Elevated troponin; present admission; stable -Likely secondary to chronic kidney disease -No reported chest pain or EKG changes suggestive of ischemia 9. Obesity, POA. Anticipate discharge to home either January 04 with home health services. Nephrology is on board with discharge home tomorrow. Exam Vital Signs (Last) Date Time Temp Pulse Resp B/P Pulse Ox O2 Delivery O2 Flow Rate FiO2 01/04/17 09:05 Supplement Oxygen 01/04/17 08:00 89 01/04/17 07:53 36.6 18 164/82 97 1.00 Test 12/28/16 11:30 12/28/16 13:15 12/28/16 14:35 12/29/16 03:25 Hemoglobin A1c 6.7% (4.8-5.6) Lactic Acid Level 1.0mmol/L (0.4-2.0) Ammonia 70ug/dL (18-53) Magnesium Level 2.4mg/dL (1.6-2.6) Iron Level 19ug/dL (35-150) Total Iron Binding Capacity 180ug/dL (250-450) Percent Iron Saturation 11%sat (15-50) Unsaturated Iron Binding 160.7ug/dL Troponin T 0.060ug/L (0.0-0.011) Globulin (PEP) 3.8g/dL (2.2-3.9) Albumin/Globulin Ratio 0.7 (0.7-1.7) Jtzvn-3-Cnjrybtqo 0.4g/dL (0.0-0.4) Afwyd-3-Dyfdsmriw 1.0g/dL (0.4-1.0) Beta Globulins 1.0g/dL (0.7-1.3) Gamma Globulins 1.4g/dL (0.4-1.8) Serum Monoclonal Protein Not observedg/dL Protein Electrophoresis Comment Comment (.) Protein Electrophoresis Interpret Comment (.) Prostate Specific Antigen 0.5ng/mL (0.0-4.0) Free Prostate Specific Antigen 0.14ng/mL (N/A) Percent Free Prostate Specific Ag 28.0% (.) Thyroid Stimulating Hormone (TSH) 1.710uIU/mL (0.450-4.500) Test 12/30/16 02:50 12/31/16 02:55 01/01/17 15:30 01/02/17 02:50 Ferritin 537ng/mL (30-400) Procalcitonin 0.76ng/mL (0.00-0.08) Total Bilirubin 0.2mg/dL (0.0-1.2) Aspartate Amino Transf (AST/SGOT) 16U/L (0-50) Alanine Aminotransferase (ALT/SGPT) 16U/L (0-44) Alkaline Phosphatase 93U/L (25-160) Total Protein 6.1g/dL (6.4-8.4) Albumin 2.9g/dL (3.4-5.0) Urine Color Straw (YELLOW) Urine Appearance Slightly cloudy Urine pH 5.0 (5.0-8.0) Urine Specific [place] 1.015 (1.003-1.035) Urine Protein 100mg/dL (NEG,TRACE) Urine Glucose (UA) 100mg/dL (NEGATIVE) Urine Ketones Negativemg/dL (NEGATIVE) Urine Occult Blood Large (NEGATIVE) Urine Nitrite Negative (NEGATIVE) Urine Bilirubin Negative (NEGATIVE) Urine Urobilinogen Normalmg/dL (NORMAL) Urine Leukocyte Esterase Small (NEGATIVE) Urine RBC 3-10/hpf (0-2) Urine WBC 6-10/hpf (0-5) Urine Epithelial Cells Moderate/hpf (NONE-MOD) Urine Crystals None seen (NONE SEEN) Urine Bacteria Moderate/hpf (NONE-FEW) Urine Hyaline Casts None/lpf (NONE) Urine Granular Casts None seen (NONE SEEN) Urine Waxy Casts None seen (NONE SEEN) Urine Red Blood Cell Casts None seen (NONE SEEN) Urine White Blood Cell Casts None seen (NONE SEEN) Urine Mucus None seen (None Seen) Urine Trichomonas None seen (NONE SEEN) Urine Yeast None (NONE SEEN) Urinalysis Comment None Urine Culture Reflexed Indicated Urine Random Creatinine 41mg/dL (22-328) Urine Random Total Protein 109mg/dL (0-15) Phosphorus Level 4.4mg/dL (2.5-4.9) Pro-B-Type Natriuretic Peptide 30247kq/mL (0-376) Test 01/02/17 11:50 01/03/17 09:22 Hepatitis B Surface Antigen Negative (Negative) HIV (1&2) Ag and Ab, 4th Generation Non reactive (Non Reactive) White Blood Count 10.1th/mm3 (3.8-10.1) Red Blood Count 3.23mil/mm3 (4.40-5.80) Hemoglobin 9.0g/dL (13.8-17.2) Hematocrit 29.4% (41.0-50.0) Mean Corpuscular Volume 91.0fL (81-100) Mean Corpuscular Hemoglobin 27.9pg (27.0-35.0) Mean Corpuscular Hemoglobin Concent 30.6% (32.0-37.0) Red Cell Distribution Width 16.2% (12.3-15.4) Platelet Count 297bil/L (150-400) Neutrophils (%) (Auto) 65.4% (40-74) Lymphocytes (%) (Auto) 20.1% (14-46) Monocytes (%) (Auto) 8.3% (4-12) Eosinophils (%) (Auto) 4.7% (0-5) Basophils (%) (Auto) 0.6% (0-3) Sodium Level 138mEq/L (134-144) Potassium Level 4.5mEq/L (3.5-5.2) Chloride Level 97mEq/L (97-108) Carbon Dioxide Level 26mmol/L (18-29) Blood Urea Nitrogen 53mg/dL (8-27) Creatinine 3.08mg/dL (0.76-1.27) Estimat Glomerular Filtration Rate 21mL/min (>59) Glucose Level 163mg/dL (60-99) Calcium Level 8.4mg/dL (8.5-10.1) Discharge Medications Discharge Medications Allopurinol (Allopurinol) 100 Mg Tablet 100 MG PO DAILY (Reported) Amlodipine (Amlodipine) 10 Mg Tablet 10 MG PO DAILY (Reported) Aspirin (Aspirin) 81 Mg Tablet 81 MG PO DAILY (Reported) Calcitriol (Rocaltrol) 0.25 Mcg Capsule 0.25 MCG PO Mon, Wed, Fri (Reported) Dextrose (Glucose) 4 Gm Tab.chew 4 GM PO DIRECTED (Reported) Doxycycline Hyclate (Doxycycline Hyclate) 100 Mg Tablet 100 MG PO BID Prescribed by: TARA BROWN MD Ferrous Sulfate (Ferrous Sulfate) 325 Mg Tablet 325 MG PO DAILY (Reported) Glipizide (Glipizide) 10 Mg Tablet 20 MG PO BID (Reported) Metoprolol Tartrate (Metoprolol Tartrate) 100 Mg Tablet 150 MG PO BID (Reported ) Miconazole Nitrate (Miconazole Nitrate) 10 Gm Powder 1 APPLIC TOPICAL DAILY ( Reported) Apply to toes Multivitamin (Multivitamins) 1 Each Capsule 1 EACH PO DAILY (Reported) Ranitidine (Ranitidine) 300 Mg Tablet 300 MG PO HS (Reported) Simvastatin (Simvastatin) 20 Mg Tablet 20 MG PO HS (Reported) Timolol Maleate (Timolol Maleate) 5 Ml Drops 1 DROP BOTH_EYES BID (Reported) Torsemide (Demadex) 20 Mg Tablet 40 MG PO DAILY Prescribed by: TARA BROWN MD As needed Benzonatate (Benzonatate) 100 Mg Capsule 100 MG PO TID PRN PRN For Cough Prescribed by: TARA BROWN MD Followup Plan Discharge Diet: Low fat, Low Sodium, Diabetic, Renal Diet Discharge Activity: Other (as tolerated) [facility] Follow-up with PCP in: 1 week Tara Brown MD Jan 04, 2017 09:19 Prescribed by: TARA BROWN MD Followup Plan Discharge Diet: Low fat, Low Sodium, Diabetic, Renal Diet Discharge Activity: Other (as tolerated) [facility] Follow-up with PCP in: 1 week Tara Brown MD Jan 04, 2017 09:19
--- NOTE | 2017-01-04 11:05 | NUR ---
Social Work: Discharge D: Pt discussed in morning rounds. Pt is medically stable for discharge. PHOTOVOLTAIC INSTALLATION TECHNICIAN met with pt at bedside to confirm discharge plan. Pt has been ambulating a lot better in the last several days and feels confident with discharge home with [facility] for RN, PT, OT, JIGGER CROWN POUNCING MACHINE OPERATOR, and PHOTOVOLTAIC INSTALLATION TECHNICIAN. Pt understands that he does not have a skilled rehab benefit and states that his brother and nephew will be staying with him. Pt's uncle is providing transport. t/c to Sheldon King with [facility] to notify of pt's discharge; he is following and has the F2F. A: Pt who lives in an apt with family. P: Anticipate pt to discharge home today with [facility] and family to transport. BREANA Mariscal
--- NOTE | 2017-01-04 11:46 | PCM.PNNEPH ---
Subjective Date of Service Jan 04, 2017 Subjective He is feeling better today. He had lost at least 18 pounds since he was admitted. There was no acute issue overnight. Exam Vital Signs Vital Sign - Last Date Time Temp Pulse Resp B/P Pulse Ox O2 Delivery O2 Flow Rate FiO2 01/04/17 09:05 Supplement Oxygen 01/04/17 08:00 89 01/04/17 07:53 36.6 18 164/82 97 1.00 Intake and Output 01/03/17 01/03/17 01/04/17 Cumulative From/Thru 15:00 23:00 07:00 12/28/16 10:52 - 01/04/17 04:52 Intake Total 520 ml 660 ml 9383 ml Output Total 1750 ml 1260 ml 88087 ml Balance -1230 ml -600 ml -67240 ml Intake Oral 520 ml 660 ml 8306 ml IV Total 688 ml Packed Cells 389 ml Output Urine Total 1750 ml 1260 ml 94224 ml Stool Total 550 ml # Voids 1 1 # Bowel Movements 0 8 Exam GENERAL: The patient in no apparent distress, and alert and oriented x3. HEENT: Head is normocephalic and atraumatic. NECK: Supple, no elevation of JVD, No carotid bruits. No lymphadenopathy or thyromegaly. LUNGS: Coarse crackles at bases. Occasional rhonchi noted. HEART: Normal S1/S2, Regular rate and rhythm ABDOMEN: Soft, nontender, mild distention, Positive bowel sounds. No hepatosplenomegaly was noted. EXTREMITIES: trace edema with chronic skin changes. Lab and Diagnostics Result Diagram: 01/03/1792101/03/17921 X-Rays, CTs and MRIs Chest X-ray IMPRESSION: Increased pulmonary vascularity and interstitial opacities within the bases as well is cardiomegaly. Findings are suspicious for overall appearance of edema. Bibasilar opacities could be passenger relations representative of focal edema versus developing airspace disease such as pneumonia. Dictated by: Giuliana Dill M.D. on 12/28/2016 at 12:17 Patient Name: ESTIVEN HERR MR#: [id number] Location: [facility] Ordering Phys: Aaron Ramirez MD Date of Service: 01/02/17 0941 PROCEDURE: X-RAY CHEST ONE VIEW, PORTABLE ([id number]) INDICATIONS: CONGESTIVE HEART FAILURE TECHNIQUE: One view of the chest was acquired. COMPARISON: [facility], CR, XR CHEST 1VW (PORTABLE), 12/28/2016, 11: 38. FINDINGS: Surgical changes and devices: None. Lungs and pleura: No pleural effusions or pneumothorax. Resolving edema. Mediastinum: Mediastinal contours appear normal. Heart size is normal. Bones and chest wall: No suspicious bony lesions. Overlying soft tissues appear unremarkable. IMPRESSION: Resolving pulmonary edema. Dictated by: Delroy Wang RRA Interpreted: Abdiaziz Westfall MD on 01/02/2017 at 13 :08 Transcribed by: JUAN on 01/02/2017 at 13:09 Approved by: Abdiaziz Westfall M.D. on 01/02/2017 at 17:13 12-lead ECG Normal sinus rhythm with a rate of 66 and notable right bundle branch block with nonspecific inversion of T-wave likely related to the bundle-branch Plan Impression -Acute kidney injury on chronic kidney disease secondary to cardiorenal syndrome /ATN. -Community acquired pneumonia. -Type II diabetes with diabetic nephropathy. -Metabolic acidosis. -Anemia in chronic kidney disease status post breast transfusion and aranesp injection. Plan Perianal standpoint he can be discharged home. We will see him in the clinic in 1 week. Continue torsemide 40 mg in the morning and 20 mg in the afternoon. Thank you for allowing me to participate in the care of your patient. Aaron Ramirez MD Jan 04, 2017 11:46
[2017-01-04 12:07] VITALS: BP 158/74; PULSE 78; RESP 18; O2SAT 96
--- NOTE | 2017-01-04 14:27 | NUR ---
Wound Care patient seen for wound care, right lateral calf ulcer measure 7 cm L x 4 cm W x 0.1 cm D, Wound bed 100% granular, drainage moderate and yellow, no odor or erythema. Stable stasis ulceration. Cleaned with saline and gauze mechanically today. Redressed with Calmoseptine to periwound, adaptic against wound bed, aquacell ag, abd pad and 3 layer compression wrap. Apparently patient to have [facility] for nursing care on discharge today, recommend patient have dressing changed weekly and continue to follow up at the [facility] for wound care.
--- NOTE | 2017-01-04 15:04 | NUR ---
Discharge Pt discharged today at 14:25. Pt off floor via wheelchair with all of his belongings in the company of the FORENSIC MANAGER and his family to a private vehicle. [facility] Hardcopies of prescriptions given to pt along with education materials. Pt voiced understanding.
== END 2017-01-04 14:25 | disposition home or self-care (01) | DRG 682 ==
LOC: SED 10:44 → UNDOADMIN 14:39 → PCC 14:39 → MPC 14:39 → PCC 16:23
PROVIDERS: ADMIT Hospitalist; ATTEND Hospitalist
PROC: 4A033R1 Measurement of Arterial Saturation, Peripheral, Percutaneous Approach (ICD-10-PCS; principal; 2016-12-28)
PROC: 30233N1 Transfusion of Nonautologous Red Blood Cells into Peripheral Vein, Percutaneous Approach (ICD-10-PCS; 2017-01-02)
DX: N17.9 Acute kidney failure, unspecified (principal); G93.40 Encephalopathy, unspecified; I50.33 Acute on chronic diastolic (congestive) heart failure; E72.20 Disorder of urea cycle metabolism, unspecified; E87.2 Acidosis; I13.0 Hypertensive heart and chronic kidney disease with heart failure and stage 1 through stage 4 chronic kidney disease, or unspecified chronic kidney disease; Z79.82 Long term (current) use of aspirin; Z79.84 Long term (current) use of oral hypoglycemic drugs; Z79.4 Long term (current) use of insulin; Z87.891 Personal history of nicotine dependence; N18.4 Chronic kidney disease, stage 4 (severe); D63.1 Anemia in chronic kidney disease; I27.81 Cor pulmonale (chronic); E11.21 Type 2 diabetes mellitus with diabetic nephropathy; E88.81 Metabolic syndrome and other insulin resistance; N25.89 Other disorders resulting from impaired renal tubular function; E87.70 Fluid overload, unspecified; Z91.19 Patient's noncompliance with other medical treatment and regimen; E11.22 Type 2 diabetes mellitus with diabetic chronic kidney disease; E66.09 Other obesity due to excess calories; Z68.33 Body mass index [BMI] 33.0-33.9, adult; R74.8 Abnormal levels of other serum enzymes